=== PATIENT | male | born 1950 | race Caucasian/White ===

== ENCOUNTER 2020-02-20 11:19 | Observation (INO) | payer OTHER ==
[2020-02-20 12:08] LABS: Absolute Lymphocytes (CBC) 0.4 K/uL (0.7-4.9); Basophils % 0.6 % (0-1.3); Hematocrit 42.6 % (39.6-49.0); Lymphocytes % 3.2 % (15.3-44.8); MPV 8.5 fL (7.6-11.3); RBC Red Blood Cell Count 4.92 M/uL (4.33-5.43)
--- OUTSIDE RECORDS SUMMARY | 2020-02-20 12:11 | XMS REPORT ---
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
--- OUTSIDE RECORDS SUMMARY | 2020-02-20 12:11 | XMS REPORT ---
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 disorder without prior episode Problem Current moderate episode of major F32.1 Active depressive disorder without prior episode Problem Generalized anxiety disorder F41.1 Active Problem Acquired hypothyroidism E03.9 Acti ve Problem Essential hypertension I10 Activ e 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 Active Problem GERD without esophagitis K21.9 Act li Problem Mixed hyperlipidemia E78.2 Active Problem Type 2 diabetes mellitus with E11.65 Active hyperglycemia Assessment Primary osteoarthritis involving M89.49 Active multiple joints Assessment Mixed hyperlipidemia E78.2 Active Assessment Lower urinary tract symptoms (LUTS) R39.9 Active Assessment Generalized anxiety disorder F41.1 Active Assessment Acquired hypothyroidism E03.9 Acti ve Assessment Essential hypertension I10 Activ e Assessment GERD without esophagitis K21.9 Act li Assessment group home (current) use of insulin Z79.4 Active Assessment Irritability and anger R45.4 Activ e Assessment Type 2 diabetes mellitus with E11.65 Active hyperglycemia Medications Medication Code Code Instructions Start End Status Dosage System Date Date Fluoxetine HCl [facility] 16733106671 20 MG Orally Active 1 capsule Once a day Trulicity [facility] 13366597211 1.5 MG/0.5ML October Active as di rected Subcutaneous 2019, Once a week 2019 Nature-Throid [facility] 61370228918 65 MG Orally Active 1 tablet on Once a day an empty stomach Meloxicam ND 16222630435 15 MG Orally Active 1 tab let Once a day Invokana [facility] 23388921095 300 mg orally Active 1 tab let once a day Metformin HCl ND 40684949842 1000 MG Orally Active 1 tablet Once a day with a meal Co Q-10 [facility] 80336800794 400 MG Orally Active 1 caps ule PRN with a meal NovoLIN 70/30 [facility] 14883309451 (70-30) 100 Active in ject 40 FlexPen UNIT/ML units Subcutaneous Once a day Trulicity [facility] 54797528122 0.75mg/0.5ml SQ Active on e once a week injection Rosuvastatin [facility] 40879151944 20 MG Orally Active 1 tablet Calcium Once a day Results Name Result Date Reference Range Unit Abnormali ty Flag Prostate-Specific Ag, Serum ----Prostate 0.7 15817301 0.0-4.0 ng/mL Specific Ag, Serum Thyroid Panel With TSH ----Free Thyroxine 1.5 86546130 1.2-4.9 Index ----TSH 1.790 02625130 0.450-4.500 uIU/mL ----T3 Uptake 23 94006883 24-39 % L ----Thyroxine (T4) 6.5 10005703 4.5-12.0 ug/dL Lipid Panel With LDL/HDL Ratio ----LDL/HDL Ratio 1.7 56494989 0.0-3.6 ratio ----LDL Cholesterol 104 40789033 0-99 mg/dL H Calc ----Cholesterol, 183 47141061 100-199 mg/dL Total ----Triglycerides 92 89710333 0-149 mg/dL ----HDL Cholesterol 61 47188615 >39 mg/dL ----VLDL 18 81612376 5-40 mg/dL Cholesterol Thomas UA/M w/rflx Culture, Comp ----Glucose 3+ 20191121 Negative A ----Protein Negative [id number] Negative/Trace ----Occult Blood Negative [id number] Negative ----Ketones Trace 60240665 Negative A ----Urobilinogen,Se 0.2 30852415 0.2-1.0 mg/dL mi-Qn ----Nitrite, Urine Negative [id number] Negative ----Bilirubin Negative 52792691 Negative ----RBC 0-2 32323199 0 - 2 /hpf ----Appearance Clear [id number] Clear ----Epithelial None seen 12583478 0 - 10 /hpf Cells (non renal) ----WBC Esterase Negative 30803008 Negative ----Microscopic See below: [id number] Examination ----pH 5.0 20191121 5.0-7.5 ----WBC 0-5 67171938 0 - 5 /hpf ----Urine-Color Yellow 20191121 Yellow ----Specific >=1.030 20191121 1.005-1.030 A Aladdin ----Bacteria None seen 20191121 None seen/Few CBC With Differential/Platel et ----Monocytes(Absol 0.5 20191121 0.1-0.9 x10E3/uL alan) ----Hemoglobin 16.8 20191121 13.0-17.7 g/dL ----Lymphs 1.6 73939964 0.7-3.1 x10E3/uL (Absolute) ----Hematocrit 51.9 20191121 37.5-51.0 % H ----Neutrophils 4.5 20191121 1.4-7.0 x10E3/uL (Absolute) ----WBC 6.9 20191121 3.4-10.8 x10E3/uL ----Basos 1 51263976 Not Estab. % ----RBC 5.63 97177284 4.14-5.80 x10E6/uL ----Baso (Absolute) 0.1 35397715 0.0-0.2 x10E3/uL ----Eos (Absolute) 0.2 04794297 0.0-0.4 x10E3/uL ----Platelets 222 64447994 150-450 x10E3/uL ----Eos 3 34148570 Not Estab. % ----MCHC 32.4 39562424 31.5-35.7 g/dL ----RDW 12.8 38142962 11.6-15.4 % ----Monocytes 7 72688781 Not Estab. % ----MCV 92 67655144 79-97 fL ----Lymphs 24 01723327 Not Estab. % ----MCH 29.8 15874850 26.6-33.0 pg ----Neutrophils 64 82557112 Not Estab. % ----Immature 1 84103436 Not Estab. % Granulocytes ----Immature Grans 0.1 39801390 0.0-0.1 x10E3/uL (Abs) Comp. Metabolic Panel (14) (CMP) ----BUN/Creatinine 18 20191121 10-24 Ratio ----eGFR If Africn 110 [id number] >59 mL/min/1.73 Am ----eGFR If 95 [id number] >59 mL/min/1.73 NonAfricn Am ----Creatinine 0.74 20191121 0.76-1.27 mg/dL L ----Chloride 95 20191121 96-106 mmol/L L ----Potassium 4.6 44431309 3.5-5.2 mmol/L ----Sodium 138 20191121 134-144 mmol/L ----Protein, Total 7.4 20191121 6.0-8.5 g/dL ----Albumin 4.8 20191121 3.8-4.8 g/dL ----Globulin, Total 2.6 14072736 1.5-4.5 g/dL ----A/G Ratio 1.8 20191121 1.2-2.2 ----BUN 13 20191121 8-27 mg/dL ----Glucose 381 29354334 65-99 mg/dL H ----Carbon Dioxide, 26 20191121 20-29 mmol/L Total ----Calcium 10.0 17747894 8.6-10.2 mg/dL ----AST (SGOT) 14 20191121 0-40 IU/L ----ALT (SGPT) 16 20191121 0-44 IU/L ----Bilirubin, 0.9 99731384 0.0-1.2 mg/dL Total ----Alkaline 71 73797904 39-117 IU/L Phosphatase Uric Acid, Serum ----Uric Acid 5.6 65414416 3.7-8.6 mg/dL Microalbumin/Creat Ratio, Random Ur ----Alb/Creat Ratio 9 [id number] 0-29 mg/g creat ----Albumin, Urine 4.9 98836449 Not Estab. ug/mL ----Creatinine, 54.5 23473048 Not Estab. mg/dL Urine Hemoglobin A1c ----Hemoglobin A1c >15.5 94419088 4.8-5.6 % H Summary Purpose eClinicalWorks Submission
--- OUTSIDE RECORDS SUMMARY | 2020-02-20 12:12 | XMS REPORT | Continuity of Care Document ---
:1950 Author Organization [facility] t Address [address] [place] [address] Care Team Providers Name Role Phone Unavailable Unavailable Unavailable Problems Condition Condition Condition Status Onset Resolution Last Treating Co mments Source Name Details Category Date Date Treatment Clinician Date Current Current Problem Active [facility] moderate moderate [facility] - episode of episode of Me moria major major l depressive depressive Ou tpati disorder disorder ent without without Clinics prior prior episode episode Generalize Generalize Problem Active [facility] d anxiety d anxiety [facility] - disorder disorder [facility] a [facility] ent [facility]ics Acquired Acquired Problem Active [facility] hypothyroi hypothyroi Charlene kes - dism dism [facility]oria l [facility] Essential Essential Problem Active [facility] hypertensi hypertensi Charlene kes - on on [facility] ent Clinics 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 Active [facility] (current) (current) Luke s - use of use of Memoria insulin insulin l [facility] Clinics GERD GERD Problem Active [facility] without without [facility] - esophagiti [facility]ophagiti [facility] Mixed Mixed Problem Active [facility] hyperlipid hyperlipid Charlene kes - emia emia [facility] Type 2 Type [address] [facility] diabetes diabetes [facility] - mellitus mellitus Memori a with with l hyperglyce hyperglyce Ou tpati sera sera ent Clinics Allergies, Adverse Reactions, Alerts Allergy Allergy Status Severity Reaction(s) Onset Inactive Treating Comm ents Source Name Type Date Date Clinician Sulfacet Adverse Active Rash [facility] amide Reaction [facility] - Sodium [facility] Medications Ordered Filled Start Stop Current Ordering Indication Dosage Frequency Signature Comments Components Source Medication Medication Date Date Medication? Clinician (SIG) Name Name Gabapentin Gabapentin Yes Marshall [address] [facility] 7-20 Fournier [facility] - 00:00: [facility]oria 00 l [facility] ent Clinics Procedures This patient has no known procedures. Encounters Start End Encounter Admission Attending Care Care Encounter Source Date/Time Date/Time Type Type Clinicians Facility Department ID 2020-02-18 2020-02-18 [facility] [id number] [facility] 10:25[facility]00 10:25:00 [facility] 2019-12-26 2019-12-26 [facility] [id number] [facility] 11:00:00 11:00:00 [facility] 2019-12-26 2019-12-26 [facility] [id number] 11:00:00 11:00:00 [facility] 2019-11-23 2019-11-23 [facility] [id number] [facility] 13:13:00 13:13:00 [facility] 2019-11-21 2019-11-21 [facility] [id number] 11:00:00 11:00:00 [facility] Results This patient has no known results.
--- OUTSIDE RECORDS SUMMARY | 2020-02-20 12:12 | XMS REPORT ---
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 disorder without prior episode Problem Generalized anxiety disorder F41.1 Active Problem Acquired hypothyroidism E03.9 Acti ve Problem Essential hypertension I10 Activ e Problem retirement (current) use of insulin Z79.4 Active Problem GERD without esophagitis K21.9 Act li Problem Mixed hyperlipidemia E78.2 Active Problem Type 2 diabetes mellitus with E11.65 Active hyperglycemia Medications Medication Code Code Instructions Start End Status Dosage System Date Date Invokana [facility] 95542242740 300 mg orally Active 1 tab let once a day Metformin HCl [facility] 96707139681 1000 MG Orally Active 1 tablet Once a day with a meal Nature-Throid [facility] 71356911115 65 MG Orally Active 1 tablet on Once a day an empty stomach [place]oxic[place] ND 06572884223 15 MG Orally Active 1 tab let Once a day Rosuvastatin [facility] 14706312844 20 MG Orally Active 1 tablet Calcium Once a day Fluoxetine HCl [facility] 89768673971 20 MG Orally Active 1 capsule Once a day Co Q-10 [facility] 52009953691 400 MG Orally Active 1 caps ule PRN with a meal NovoLIN 70/30 [facility] 11531567714 (70-30) 100 Active in ject 40 FlexPen UNIT/ML units Subcutaneous Once a day Trulicity [facility] 70322518391 1.5 MG/0.5ML October Active as di rected Subcutaneous 2019, [facility] week [facility] 0.75[facility]/0.5ml SQ Active on e once a week injection Results No Known Results Summary Purpose eClinicalWorks Submission
--- OUTSIDE RECORDS SUMMARY | 2020-02-20 12:12 | XMS REPORT ---
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 Active Assessment Primary osteoarthritis involving M89.49 Active multiple joints Assessment Lower urinary tract symptoms (LUTS) R39.9 Active Assessment Generalized anxiety disorder F41.1 Active Assessment Irritability and anger R45.4 Activ e Assessment Acquired hypothyroidism E03.9 Acti ve Assessment Mixed hyperlipidemia E78.2 Active Assessment Essential hypertension I10 Activ e Assessment GERD without esophagitis K21.9 Act li Assessment Type 2 diabetes mellitus with E11.65 Active hyperglycemia Medications Medication Code Code Instructions Start End Status Dosage System Date Date Meloxicam [facility] 73114778108 15 MG Orally Active 1 tab let Once a day NovoLIN 70/30 ND 60032609195 (70-30) 100 Inactive i nject 40 FlexPen UNIT/ML units Subcutaneous Once a day [place] ND 55932662919 200 UNIT/ML December 25, Active Inject 6 0 FlexTouch Subcutaneous QD 2020 units Trulicity [facility] 74109867931 1.5 MG/0.5ML Active as di rected Subcutaneous Once a week Nature-Throid [facility] 18238341671 65 MG Orally Active 1 tablet on Once a day an empty stomach Co Q-10 [facility] 91549177781 400 MG Orally Active 1 caps ule PRN with a meal Metformin HCl ND 30342768147 1000 MG Orally Active 1 tablet Once a day with a meal Rosuvastatin [facility] 50692087316 20 MG Orally Active 1 tablet Calcium Once a day Fluoxetine HCl [facility] 28387920737 20 MG Orally Active 1 capsule Once a day Invokana [facility] 85764684861 300 mg orally Active 1 tab let once a day Trulicity [facility] 10277272070 0.75mg/0.5ml SQ Active on e once a week injection Results No Known Results Summary Purpose eClinicalWorks Submission
--- OUTSIDE RECORDS SUMMARY | 2020-02-20 12:12 | XMS REPORT ---
:1950 Author Organization eClinicalWorks Care Team Providers Name Role Phone FournierMarshall Provider Role Unavailable Allergies No Known Allergies [...] with E11.65 Active hyperglycemia Medications Medication Code System Code Instructions Start End Date Status Dos age Date Gabapentin [facility] 24403449115 100 MG Orally February 17, Active 1 capsule twice a day 2019 Results No Known Results Summary Purpose eClinicalWorks Submission
[2020-02-20 12:15] LABS: Protime INR 1.27
[2020-02-20] MEDS ORDERED: NA CHLORIDE 0.9% 500 ML ONE (12:20)
[2020-02-20] MEDS ORDERED: ONDANSETRON 4 MG/2 ML VIAL ONE (12:20)
--- NOTE | 2020-02-20 12:25 | RAD REPORT ---
EXAM DESCRIPTION: RAD - Chest Single View - 02/20/2020 12:00 pm CLINICAL HISTORY: DYSPNEA Chest pain. COMPARISON: No comparisons FINDINGS: Portable technique limits examination quality. Mildly prominent interstitial lung markings are seen, nonspecific. A mild interstitial pneumonitis is possible. The heart is normal in size. No displaced fractures.
[2020-02-20 12:44] LABS: ALT/SGPT 20 U/L (12-78); AST/SGOT 24 U/L (15-37); Albumin 2.8 g/dL (3.4-5.0); Alkaline Phosphatase 51 U/L (45-117); BUN Blood Urea Nitrogen 19 mg/dL (7-18); Bicarbonate 22 mmol/L (21-32); Bilirubin Direct 0.3 mg/dL (0-0.2); Bilirubin Total 1.1 mg/dL (0.2-1.0); Ferritin 3519.5 ng/mL (26-388); Glucose Level 283 mg/dL (74-106); Lipase 59 U/L (73-393); Potassium 3.8 mmol/L (3.5-5.1); Protein, Total 7.6 g/dL (6.4-8.2); Sodium Level 130 mmol/L (136-145); Troponin (Emerg Dept Use Only) < 0.02 ng/mL (0.0-0.045)
[2020-02-20 12:50] LABS: Blood Morphology Comment NOT SEEN (NOT SEEN); Platelet Estimate ADEQ; Urine White Blood Cell Casts OK
[2020-02-20] MEDS ORDERED: ACETAMINOPHEN 325 MG TABLET ONE (12:55)
--- NOTE | 2020-02-20 13:42 | RAD REPORT ---
EXAM DESCRIPTION: CT - Chest Abdomen Pelvis W Cont - 02/20/2020 1:13 pm CLINICAL HISTORY: Cough, abdominal pain COMPARISON: None TECHNIQUE: Computed axial tomography of the chest, abdomen and pelvis was obtained. 100 cc Isovue-30 0 was administered intravenously. Oral contrast was not requested. This limits evaluation of bowel. All CT scans are performed using dose optimization technique as appropriate and may include automated exposure control or mA/KV adjustment according to patient size. FINDINGS: Bilateral ground-glass opacities within the lungs. No pleural effusion. No pericardial effusion. Calcified mediastinal lymph nodes. Mild fatty liver The spleen, pancreas, adrenals and kidneys appear unremarkable Atherosclerosis Normal appendix. No evidence of diverticulitis IMPRESSION: Moderate bilateral ground-glass opacities within the lungs probably Covid pneumonia
[2020-02-20] MEDS ORDERED: dexAMETHasone 10 MG/ML VIAL ONE (14:18)
--- NOTE | 2020-02-20 14:19 | ER ---
Nurse's Notes [facility] Name: Hasmukh Martin Age: 69 yrs Sex: Male : 1950 Arrival Date: 02/20/2020 Time: 11:18 Bed 8 Private MD: Diagnosis: Dehydration;Pneumonia, unspecified organism;Coronavirus infection, unspecified Presentation: 02/19 11:18 Chief complaint: EMS states: dx w/ COVID 2 weeks ago with symptoms. About 4 days ago sv started having abd pain, nausea, dizziness. 88% RA placed on O2 \T\ 4L per NC. HR 90-110s SBP 150s Temp 100.1. Pt reports not having any food or drink for about a week. Coronavirus screen: Prior COVID test collected on: 02/06/20 POSITIVE. Ebola Screen: No symptoms or risks identified at this time. Risk Assessment: Do you want to hurt yourself or someone else? Patient reports no desire to harm self or others. Onset of symptoms was February 16, 2020. 11:18 Method Of Arrival: EMS: [facility] sv 11:18 Acuity: MARTA 2 sv 11:30 Initial Sepsis Screen: Does the patient meet any 2 criteria? RR > 20 per min. Temp sv <36.0*C (96.8*F)) or > 38.3*C (100.9*F). Yes Does the patient have a suspected source of infection? Yes: Acute abdominal pain. Triage Assessment: 11:18 General: Appears in no apparent distress. uncomfortable, slender, well developed, sv Behavior is calm, cooperative, appropriate for age. Pain: Complains of pain in abdomen Pain currently is 7 out of 10 on a pain scale. Pain began 4 days ago Is continuous, Aggravated by eating, drinking, Noted to be resistant to movement, Also complains of nausea. Neuro: Level of Consciousness is awake, alert, obeys commands, Oriented to person, place, time, situation, Moves all extremities. Full function Speech is normal. Neuro: Reports dizziness. Respiratory: Airway is patent Respiratory effort is even, unlabored, Respiratory pattern is regular, symmetrical. GI: Reports nausea. GI: Reports lower abdominal pain, upper abdominal pain. : Reports dribbling of urine. Derm: Skin is intact, Skin is normal. Historical: - Allergies: 12:05 Sulfa (Sulfonamide Antibiotics); sv - PMHx: 12:05 Diabetes - NIDDM; sv - PSHx: 12:05 bilateral bicep; sv - Immunization history:: Adult Immunizations up to date. - Social history:: Smoking status: Patient denies any tobacco usage or history of. - Family history:: not pertinent. - Hospitalizations: : No recent hospitalization is reported. Screenin:20 Abuse screen: Denies threats or abuse. Denies injuries from another. Nutritional sv screening: No deficits noted. Tuberculosis screening: No symptoms or risk factors identified. Fall Risk None identified. Assessment: 12:32 Reassessment: Patient appears in no apparent distress at this time. No changes from sv previously documented assessment. Patient and/or family updated on plan of care and expected duration. Pain level reassessed. Patient is alert, oriented x 3, equal unlabored respirations, skin warm/dry/pink. 12:57 Reassessment: Patient appears in no apparent distress at this time. No changes from sv previously documented assessment. Patient and/or family updated on plan of care and expected duration. Pain level reassessed. Patient is alert, oriented x 3, equal unlabored respirations, skin warm/dry/pink. 14:25 Reassessment: Patient appears in no apparent distress at this time. Patient and/or sv family updated on plan of care and expected duration. Pain level reassessed. Patient is alert, oriented x 3, equal unlabored respirations, skin warm/dry/pink. 14:29 Reassessment: Yvan INSTRUCTIONAL SUPPORT ASSISTANT at bedside to assess pt and then place admission orders. sv 15:32 Reassessment: Patient appears in no apparent distress at this time. Patient and/or sv family updated on plan of care and expected duration. Pain level reassessed. Patient is alert, oriented x 3, equal unlabored respirations, skin warm/dry/pink. Vital Signs: 11:30 BP 130 / 82; Pulse 86; Resp 28; Temp 101(O); Pulse Ox 97% on 4 lpm NC; Pain 7/10; sv 12:33 BP 119 / 79; Pulse 80; Resp 18; Pulse Ox 98% on 4 lpm NC; sv 13:00 BP 124 / 77; Pulse 82; Resp 26; Pulse Ox 95% on 4 lpm NC; sv 14:28 BP 122 / 80; Pulse 78; Resp 18; Temp 97.8(O); Pulse Ox 96% on 4 lpm NC; sv 14:56 BP 135 / 90; Pulse 75; Resp 21; Pulse Ox 98% on 4 lpm NC; sv 15:18 BP 132 / 85; Pulse 77; Resp 19; Pulse Ox 97% on 4 lpm NC; sv ED Course: 11:18 Patient arrived in ED. sv 11:20 Patient has correct armband on for positive identification. Placed in gown. Bed in low sv position. Call light in reach. monitoring and evaluation advisor on. Pulse ox on. NIBP on. Door closed. Head of bed elevated. 11:26 Vahid Cotter MD is Attending Physician. rn 11:37 First set of blood cultures drawn by me. Inserted saline lock: 20 gauge in right sv forearm, using aseptic technique. Blood collected. Flushed right forearm with 5 ml normal saline. 11:49 Second set of blood cultures drawn by me. sv 12:00 CXR XRAY In Process Unspecified. EDMS 12:00 Emmanuelle Broussard, ROZ is Primary Nurse. sv 12:05 Triage completed. sv 12:06 Arm band placed on. sv 13:15 CT Chest, Abdomen, Pelvis - W/Contrast In Process Unspecified. EDMS 13:35 Awaiting lab results, Awaiting radiology results. sv 13:51 Awaiting disposition, Awaiting re-evaluation by ER provider. sv 14:17 Blanco Pierre MD is Hospitalizing Provider. rn 14:30 Awaiting bed assignment. sv 15:31 No provider procedures requiring assistance completed. Patient admitted, IV remains in sv place. intact. 16:20 Urine Dipstick--Ancillary (enter results) Sent. sv Administered Medications: 12:32 Drug: Zofran (Ondansetron) 4 mg Route: IVP; Site: right forearm; sv 13:01 Follow up: Response: No adverse reaction sv 12:32 Drug: NS 0.9% 500 ml Route: IV; Rate: bolus; Site: right forearm; sv 13:02 Follow up: Response: No adverse reaction; IV Status: Completed infusion; IV Intake: sv 500ml 12:57 Drug: Tylenol 650 mg Route: PO; sv 13:02 Follow up: Response: No adverse reaction sv 14:25 Drug: Decadron - Dexamethasone 10 mg Route: IVP; Site: right forearm; sv 15:00 Follow up: Response: No adverse reaction sv Intake: 13:02 IV: 500ml; Total: 500ml. sv Outcome: 14:18 Decision to Hospitalize by Provider. rn 15:31 Admitted to Tele accompanied by tech, via wheelchair, room 415, with oxygen, with sv chart, Report called to Yesika COURTNEY 15:31 Condition: stable 15:31 Instructed on the need for admit. 16:19 Patient left the ED. sv Signatures: Dispatcher [employer] Emmanuelle Cloud, RN RN sv Vahid Cotter MD MD rn
--- NOTE | 2020-02-20 14:19 | EDPHYS ---
Physician Documentation [facility] Name: Hasmukh Martin Age: 69 yrs Sex: Male : 1950 Arrival Date: 02/20/2020 Time: 11:18 Bed 8 Private MD: ED Physician Vahid Cotter HPI: 02/19 13:39 This 69 yrs old Male presents to ER via EMS with complaints of Abdominal rn Pain, sob, Nausea, Dizziness. 13:40 The patient has shortness of breath at rest, with light activity. rn 13:41 Onset: The symptoms/episode began/occurred 4 day(s) ago. Duration: The symptoms are rn continuous. The patient's shortness of breath is aggravated by nothing, is alleviated by nothing. Severity of symptoms: At their worst the symptoms were moderate in the emergency department the symptoms are unchanged. The patient has not experienced similar symptoms in the past. Reports recently diagnosed with COVID-19, 4 days of cough/sob/abd pain/nausea, fatigue. . Historical: - Allergies: 12:05 Sulfa (Sulfonamide Antibiotics); sv - PMHx: 12:05 Diabetes - NIDDM; sv - PSHx: 12:05 bilateral bicep; sv - Immunization history:: Adult Immunizations up to date. - Social history:: Smoking status: Patient denies any tobacco usage or history of. - Family history:: not pertinent. - Hospitalizations: : No recent hospitalization is reported. 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 Exam: 13:41 Constitutional: This is a well developed, well nourished patient who is awake, alert, rn and in no acute distress. Head/Face: Normocephalic, atraumatic. ENT: dry MM Cardiovascular: Regular rate and rhythm. No pulse deficits. Respiratory: + tachypnea, diminished at bases, no retractions Abdomen/GI: soft, mild tenderness epigastrium, no masses or rebound MS/ Extremity: Pulses equal, no cyanosis. Neurovascular intact. Full, normal range of motion. Equal circumference. Neuro: Awake and alert, GCS 15 14:44 ECG was reviewed by the Attending Physician. rn Vital Signs: 11:30 BP 130 / 82; Pulse 86; Resp 28; Temp 101(O); Pulse Ox 97% on 4 lpm NC; Pain 7/10; sv 12:33 BP 119 / 79; Pulse 80; Resp 18; Pulse Ox 98% on 4 lpm NC; sv 13:00 BP 124 / 77; Pulse 82; Resp 26; Pulse Ox 95% on 4 lpm NC; sv 14:28 BP 122 / 80; Pulse 78; Resp 18; Temp 97.8(O); Pulse Ox 96% on 4 lpm NC; sv 14:56 BP 135 / 90; Pulse 75; Resp 21; Pulse Ox 98% on 4 lpm NC; sv 15:18 BP 132 / 85; Pulse 77; Resp 19; Pulse Ox 97% on 4 lpm NC; sv MDM: 11:26 Patient medically screened. rn 14:09 Differential diagnosis: pneumonia, COVID, dehydration, sepsis. Data reviewed: vital rn signs, nurses notes, lab test result(s), EKG, radiologic studies, CT scan, plain films, and as a result, I will admit patient. Counseling: I had a detailed discussion with the patient and/or guardian regarding: the historical points, exam findings, and any diagnostic results supporting the discharge/admit diagnosis, lab results, radiology results, the need for further work-up and treatment in the hospital. Response to treatment: the patient's symptoms have mildly improved after treatment, and as a result, I will admit patient. Admission orders: after a detailed discussion of the patient's condition and case, the admit orders are written by me. 02/19 11:28 Order name: Blood Culture Adult (2) rn 02/19 11:28 Order name: BMP; Complete Time: 12:48 rn 02/19 11:28 Order name: C-Reactive Protein; Complete Time: 12:48 rn 02/19 11:28 Order name: CBC with Diff; Complete Time: 13:56 rn 02/19 11:28 Order name: D-Dimer; Complete Time: 12:28 rn 02/19 11:28 Order name: Ferritin; Complete Time: 12:48 rn 02/19 11:28 Order name: Flu rn 02/19 11:28 Order name: Lactate; Complete Time: 12:28 rn 02/19 11:28 Order name: LFT's; Complete Time: 12:48 rn 02/19 11:28 Order name: Lipase; Complete Time: 12:48 rn 02/19 11:28 Order name: Procalcitonin; Complete Time: 13:56 rn 02/19 11:28 Order name: PT-INR; Complete Time: 12:28 rn 02/19 11:28 Order name: Ptt, Activated; Complete Time: 12:28 rn 02/19 11:28 Order name: Troponin (emerg Dept Use Only); Complete Time: 12:48 rn 02/19 11:28 Order name: Urine Microscopic Only rn 02/19 11:28 Order name: CXR XRAY; Complete Time: 12:28 rn 02/19 11:28 Order name: EKG; Complete Time: 11:30 rn 02/19 11:28 Order name: Cardiac monitoring; Complete Time: 12:32 rn 02/19 11:28 Order name: Droplet/Contact Precautions; Complete Time: 12:32 rn 02/19 11:28 Order name: EKG - Nurse/Tech; Complete Time: 12:33 rn 02/19 11:28 Order name: IV Start; Complete Time: 12:33 rn 02/19 11:28 Order name: Labs collected and sent; Complete Time: 12:33 rn 02/19 11:28 Order name: O2 Per Protocol; Complete Time: 12:33 rn 02/19 12:49 Order name: CT Chest, Abdomen, Pelvis - W/Contrast; Complete Time: 13:56 rn 02/19 12:50 Order name: CBC Smear Scan; Complete Time: 13:56 EDMS 02/19 15:38 Order name: Urine Dipstick--Ancillary (enter results) bd 02/19 11:28 Order name: O2 Sat Monitoring; Complete Time: 12:33 rn 02/19 11:28 Order name: Urine Dipstick-Ancillary (obtain specimen); Complete Time: 14:25 rn EC:44 Rate is 87 beats/min. Rhythm is regular. QRS Bow is Normal. FL interval is normal. QRS rn interval is normal. QT interval is normal. No Q waves. T waves are Normal. No ST changes noted. Clinical impression: NSR w/ Non-specific ST/T Changes. Interpreted by me. Reviewed by me. Administered Medications: 12:32 Drug: Zofran (Ondansetron) 4 mg Route: IVP; Site: right forearm; sv 13:01 Follow up: Response: No adverse reaction sv 12:32 Drug: NS 0.9% 500 ml Route: IV; Rate: bolus; Site: right forearm; sv 13:02 Follow up: Response: No adverse reaction; IV Status: Completed infusion; IV Intake: sv 500ml 12:57 Drug: Tylenol 650 mg Route: PO; sv 13:02 Follow up: Response: No adverse reaction sv 14:25 Drug: Decadron - Dexamethasone 10 mg Route: IVP; Site: right forearm; sv 15:00 Follow up: Response: No adverse reaction sv Disposition: 02/20/20 14:18 Hospitalization ordered by Blanco Pierre for Inpatient Admission. Preliminary diagnosis are Dehydration, Pneumonia, unspecified organism, Coronavirus infection, unspecified. - Bed requested for Telemetry/MedSurg (Inpatient). - Status is Inpatient Admission. sv - Condition is Stable. - Problem is new. - Symptoms are unchanged. 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 Preliminary kl diagnosis is Dehydration; Pneumonia, unspecified organism; Coronavirus infection, unspecified. Bed requested for Telemetry/MedSurg (Inpatient). Status is Inpatient Admission. Condition is Stable. Problem is new. Symptoms are unchanged. rn 16:19 15:09 02/20/2020 14:18 Hospitalization Ordered by Blanco Pierre MD for Inpatient sv Admission. Preliminary diagnosis is Dehydration; Pneumonia, unspecified organism; Coronavirus infection, unspecified. Bed requested for Telemetry/MedSurg (Inpatient). Status is Inpatient Admission. Condition is Stable. Problem is new. Symptoms are unchanged.
--- NOTE | 2020-02-20 15:21 | P.HP ---
Certification for Inpatient Patient admitted to: Observation With expected LOS: <2 Midnights Patient will require the following post-hospital care: None Practitioner: I am a practitioner with admitting privileges, knowledge of patient current condition, hospital course, and medical plan of care. Services: Services provided to patient in accordance with Admission requirements found in Title 42 Section 412.3 of the Code of Federal Regulations <Yvan Pedroza - Last Filed: 02/20/20 15:12> Patient History Date of Service: 02/20/20 Reason for admission: COVID pneumonia, hypoxia History of Present Illness: 69-year-old male with medical history of hypertension, diabetes mellitus type 2, hyperlipidemia presents emergency department for COVID symptoms. Patient reports that he tested positive for covid approximately 2 weeks ago but over the course of the last 1 week has been getting worse. Patient reports anorexia, dehydration, shortness of breath. Patient room air sats 88% in the emergency department, patient currently on 4 L per nasal cannula satting around 92%. Patient's workup in the emergency department was relatively benign. ED provider wishes to admit patient for further evaluation and management. When I saw the patient in the emergency department he appeared calm, cooperative, alert, oriented x4, no respiratory distress noted. Patient does report that he has had no appetite and has not been eating well for the past 1 week. Patient reports that he has had a 12 lb weight loss in the last 1 week. The patient be admitted for further evaluation and management. The patient is amenable to receiving convalescent plasma. - Past Medical/Surgical History -: Diabetes mellitus type 2 -: Hypertension -: Hyperlipidemia -: Bicep tendon repair Psychosocial/ Personal History: Patient lives at home with his and to disable daughters - Family History Family History: Reviewed- Non-Contributory - Social History Smoking Status: Never smoker Alcohol use: No CD- Drugs: No Caffeine use: No Place of Residence: Home <Yvan Pedroza - Last Filed: 02/20/20 15:12> Date of Service: 02/20/20 <Mike Pierre - Last Filed: 02/20/20 16:39> Review of Systems 10-point ROS is otherwise unremarkable General: Fever, Chills, Weakness, Malaise Respiratory: Cough, Shortness of Breath Gastrointestinal: Nausea <Yvan Pedroza - Last Filed: 02/20/20 15:12> Physical Examination - Physical Exam General: Alert, In no apparent distress HEENT: Atraumatic, PERRLA, Other (Mucous membranes dry), EOMI, Sclerae nonicteric Neck: Supple, JVD not distended Respiratory: Clear to auscultation bilaterally, Normal air movement Cardiovascular: Regular rate/rhythm, Normal S1 S2 Gastrointestinal: Normal bowel sounds, No tenderness Musculoskeletal: No tenderness Integumentary: No rashes Neurological: Normal speech, Normal strength at 5/5 x4 extr, Normal tone, Normal affect Lymphatics: No axilla or inguinal lymphadenopathy - Studies Laboratory Data (last 24 hrs) 02/20/20 11:37: PT 14.9 H, INR 1.27, APTT 31.9 02/20/20 11:37: WBC 11.4 H, Hgb 14.9, Hct 42.6, Plt Count 227 02/20/20 11:37: Sodium 130 L, Potassium 3.8, BUN 19 H, Creatinine 0.90, Glucose 283 H, Total Bilirubin 1.1 H, AST 24, ALT 20, Alkaline Phosphatase 51, Lipase 59 L Microbiology Data (last 24 hrs): 02/20/20 12:17 Nasopharnyx Influenza Type A Antigen Screen - Final 02/20/20 12:17 Nasopharnyx Influenza Type B Antigen Screen - Final <Yvan Pedrzoa - Last Filed: 02/20/20 15:12> - Studies Laboratory Data (last 24 hrs) 02/20/20 11:37: PT 14.9 H, INR 1.27, APTT 31.9 02/20/20 11:37: WBC 11.4 H, Hgb 14.9, Hct 42.6, Plt Count 227 02/20/20 11:37: Sodium 130 L, Potassium 3.8, BUN 19 H, Creatinine 0.90, Glucose 283 H, Total Bilirubin 1.1 H, AST 24, ALT 20, Alkaline Phosphatase 51, Lipase 59 L Microbiology Data (last 24 hrs): 02/20/20 12:17 Nasopharnyx Influenza Type A Antigen Screen - Final 02/20/20 12:17 Nasopharnyx Influenza Type B Antigen Screen - Final <Mike Pierre - Last Filed: 02/20/20 16:39> Assessment and Plan - Plan Assessment Hypoxia secondary to COVID pneumonia Dehydration secondary to anorexia and poor p.o. intake Diabetes mellitus type 2 Hypertension Hyperlipidemia Plan Hypoxia secondary to COVID pneumonia: Patient will be admitted for further evaluation management, oxygen titrated to saturations of 90%. Will continue with IV Decadron, oral thiamine, folic acid, zinc. DVT prophylaxis is Lovenox 40 mg subcutaneous once daily. Respiratory therapy to assist weaning patient off of oxygen. Will attempt to qualify for home oxygen. Case was discussed with pulmonology, Appreciate further input from pulmonology. Patient is amendable to convalescent plasma, will obtain type and screen and start this process with hospitalist physician. Dehydration secondary to anorexia and poor p.o. intake: Patient's mucous membranes very dry, reports 12 lb weight loss the last 1 week. Will start with IV fluids overnight and determine patient's hydration needs tomorrow. Diabetes mellitus type 2: A.c. HS Accu-Cheks with sliding scale insulin therapy. Will obtain and continue patient's home medications. Hypertension: Obtain and continue patient's home medications. Hyperlipidemia: Obtain and continue patient's home medications. Discharge Plan: Home Plan to discharge in: 48 Hours - Advance Directives Does patient have a Living Will: No Does patient have a Durable POA for Healthcare: No - Code Status/Comfort Care Code Status Assessed: Yes (Patient is full code) Critical Care: No Time Spent Managing Pts Care (In Minutes): 55 <Yvan Pedroza - Last Filed: 02/20/20 15:12> Physician Review Additional Text: Patient was seen and examined and findings were discussed Agree with the assessment and plan as documented by the CARLOS <Mike Pierre - Last Filed: 02/20/20 16:39>
[2020-02-20 15:24] LABS: Urine Bacteria <20 /HPF (NONE SEEN); Urine Culture Reflex Order NOT NEEDED; Urine RBC <5 /HPF (NONE SEEN)
[2020-02-20] MEDS ORDERED: ACETAMINOPHEN 500 MG TAB PO PRN (16:28)
[2020-02-20] MEDS ORDERED: ONDANSETRON 4 MG/2 ML VIAL IV PRN (16:28)
[2020-02-20] MEDS ORDERED: HYDRALAZINE HCL 20 MG/ML VIAL IV PRN (16:28)
[2020-02-20] MEDS ORDERED: NA CHLORIDE 0.9% 1,000 ML IV SCH (16:28)
[2020-02-20 17:04] VITALS: BMI 25.4
[2020-02-20] MEDS: ENOXAPARIN 40 MG/0.4 ML SQ SCH (17:12)
[2020-02-20] MEDS: dexAMETHasone 4 MG/ML VIAL IV SCH (17:12)
[2020-02-20] MEDS: INSULIN -REGULAR HUMAN 50 UNIT/0.5 ML ML SQ SCH ×2 (17:12→21:34)
[2020-02-20] MEDS ORDERED: PNEUMOCOCCAL VACCINE 0.5 ML IMVAC ONE (18:00)
[2020-02-20] MEDS: NA CHLORIDE 0.9% 1,000 ML IV SCH ×2 (21:00→21:34)
[2020-02-20] MEDS: BUDESONIDE 0.5 MG/2 ML NEB NEB SCH (21:32)
[2020-02-20] MEDS: GUAIFENESIN/CODEINE 5ML UCUP PO PRN (23:00)
[2020-02-21 03:56] LABS: Absolute Lymphocytes (CBC) 0.4 K/uL (0.7-4.9); Basophils % 0.3 % (0-1.3); MPV 8.7 fL (7.6-11.3); RBC Red Blood Cell Count 4.51 M/uL (4.33-5.43)
[2020-02-21 04:15] LABS: BUN Blood Urea Nitrogen 18 mg/dL (7-18); Bicarbonate 24 mmol/L (21-32); Glucose Level 274 mg/dL (74-106); Magnesium 2.4 mg/dL (1.8-2.4); Potassium 4.5 mmol/L (3.5-5.1); Sodium Level 133 mmol/L (136-145)
--- NOTE | 2020-02-21 07:25 | EKG ---
Test Date: 2020-02-20 Test Time: 11:45:45 General Foundry Worker: SRIRAM MEASUREMENT RESULTS: Intervals: Rate: 87 [place]: 154 QRSD: 112 QT: 370 QTc: 445 [place]: P: 57 [place]: 154 QRS: -5 T: 38 INTERPRETIVE STATEMENTS: Normal sinus rhythm Low voltage QRS Incomplete right bundle branch block Borderline ECG No previous ECG available for comparison Electronically Signed On 02-21-20 07:24:58 CDT by Dean Clay
[2020-02-21] MEDS: ENOXAPARIN 40 MG/0.4 ML SQ SCH (08:56)
[2020-02-21] MEDS: INSULIN -REGULAR HUMAN 50 UNIT/0.5 ML ML SQ SCH ×4 (08:56→22:10)
[2020-02-21] MEDS: FOLIC ACID 1 MG TABLET PO SCH (08:57)
[2020-02-21] MEDS: THIAMINE HCL 100 MG TABLET PO SCH (08:57)
[2020-02-21] MEDS: ZINC SULFATE 220 MG CAP PO SCH (08:57)
[2020-02-21] MEDS: dexAMETHasone 4 MG/ML VIAL IV SCH ×3 (08:57→16:39)
--- NOTE | 2020-02-21 09:05 | P.CNS ---
Date of Consult: 02/21/20 Chief Complaint: COVID pneumonia, hypoxia History of Present Illness: Patient is 69 years of age multiple medical problems admitted with worsening dyspnea was tested positive for Crohn or virus currently doing much better he also had some GI symptoms is feeling fine oxygenation is stable Allergies No Known Allergies Allergy (Verified 02/20/20 18:05) Home Medications: Canagliflozin [Invokana] 300 mg PO DAILY 02/20/20 Diclofenac Sodium 37.5 mg PO BEDTIME 02/20/20 Diclofenac Sodium [Voltaren] 37.5 mg PO DAILY 02/20/20 Dulaglutide [Trulicity] 1.5 mg SQ SEECOM 02/20/20 Fluoxetine HCl [Prozac] 20 mg PO DAILY 02/20/20 Insulin NPH Hum/Reg Insulin Hm [Novolin 70-30 Flexpen] 30 unit SQ DAILY AT SUPPER 02/20/20 Insulin NPH Hum/Reg Insulin Hm [Novolin 70-30 Flexpen] 40 units SQ DAILY 02/20/20 Meloxicam 1 tab PO DAILY 02/20/20 Metformin HCl [Glucophage] 500 mg PO DAILY WITH BREAKFAST 02/20/20 Rosuvastatin Calcium 20 mg PO DAILY 02/20/20 Thyroid,Pork [Nature-Throid] 65 mg PO DAILY 02/20/20 Ubidecarenone [Co Q-10] 400 mg PO DAILY 02/20/20 - Past Medical/Surgical History Diabetic: Yes -: Diabetes mellitus type 2- IDDM -: Hypertension -: Hyperlipidemia -: Hypothyroid -: Bicep tendon repair -: rogelio ankle sx -: Rogelio Knee sx Psychosocial/ Personal History: Patient lives at home with his and to disable daughters - Social History Alcohol use: No CD- Drugs: No Caffeine use: No Place of Residence: Home Review of Systems General: Weakness Respiratory: Shortness of Breath Physical Examination Temp Pulse Resp BP Pulse Ox 97.1 F 891 H 20 145/79 H 90 L 02/21/20 08:00 02/21/20 08:00 02/21/20 08:00 02/21/20 08:00 02/21/20 08:00 General: Other (Deferred) Laboratory Data (last 24 hrs) 02/20/20 11:37: PT 14.9 H, INR 1.27, APTT 31.9 02/20/20 11:37: WBC 11.4 H, Hgb 14.9, Hct 42.6, Plt Count 227 02/20/20 11:37: Sodium 130 L, Potassium 3.8, BUN 19 H, Creatinine 0.90, Glucose 283 H, Total Bilirubin 1.1 H, AST 24, ALT 20, Alkaline Phosphatase 51, Lipase 59 L - Problems (1) Pneumonia due to human coronavirus Current Visit: Yes Status: Acute Plan: Patient is 69 years of age admitted with pneumonia due to singh virus he is doing much better evaluate for home oxygen patient is a patchy ground-glass changes plan to discharge on steroids labs reviewed
[2020-02-21] MEDS: NA CHLORIDE 0.9% 1,000 ML IV SCH (10:20)
--- NOTE | 2020-02-21 10:34 | P.DS ---
Admission Date: 02/20/20 Discharge Date: 02/21/20 Disposition: ROUTINE DISCHARGE Discharge Condition: FAIR Reason for Admission: COVID pneumonia, hypoxia Consultations: Pulmonology: Dr. Alexander Procedures: CT chest abdomen pelvis FINDINGS: Bilateral ground-glass opacities within the lungs. No pleural effusion. No pericardial effusion. Calcified mediastinal lymph nodes. Mild fatty liver The spleen, pancreas, adrenals and kidneys appear unremarkable Atherosclerosis Normal appendix. No evidence of diverticulitis IMPRESSION: Moderate bilateral ground-glass opacities within the lungs probably Covid pneumonia Chest x-ray FINDINGS: Portable technique limits examination quality. Mildly prominent interstitial lung markings are seen, nonspecific. A mild interstitial pneumonitis is possible. The heart is normal in size. No displaced fractures Medical problem list COVID pneumonia with hypoxia Diabetes mellitus type 2 Hypothyroidism Hyperlipidemia Brief History of Present Illness: 69-year-old male with medical history of hypertension, diabetes mellitus type 2, hyperlipidemia presents emergency department for COVID symptoms. Patient reports that he tested positive for covid approximately 2 weeks ago but over the course of the last 1 week has been getting worse. Patient reports anorexia, dehydration, shortness of breath. Patient room air sats 88% in the emergency department, patient currently on 4 L per nasal cannula satting around 92%. Patient's workup in the emergency department was relatively benign. ED provider wishes to admit patient for further evaluation and management. Hospital Course: Patient remained on nasal cannula overnight, received IV steroids in addition to oral vitamins. Patient also received IV hydration. Patient did well overnight with no events. Patient states he is feeling better than he was yesterday. Patient did qualify for home oxygen therapy based on his room air saturations. Pulmonology evaluated patient this morning and believes that he is stable for discharge with home oxygen, steroids, inhalers. Patient in no respiratory distress, able to speak in full sentences clearly. Saturations in the 90s on 2/3 L per nasal cannula. Labs unremarkable this morning. Had long discussion with patient and regarding discharge instructions. At discharge patient will continue with prednisone 10 mg p.o. b.i.d. for 10 days, albuterol inhaler 2 puffs q 6 p.r.n. shortness of breath, Dulera 100 mcg inhaler. Patient will need to follow up with pulmonology for telemedicine visit in the next 1 week. Patient history of diabetes mellitus type 2 at discharge she will continue with NovoLog 70 30 FlexPen 30 units subcutaneous at supper, NovoLog 70 30 FlexPen 40 units subcu daily, Trulicity 1.5 mg subcutaneously daily, metformin 500 mg p.o. daily with breakfast, invokana at 300 mg p.o. daily. Patient history of hyperlipidemia, discharge patient will continue with rosuvastatin 20 mg p.o. daily. Patient is positive for COVID 19, the discharge patient need to be self jv rantine, recommend facial coverings maintain hygiene practices. Recommend repeat nasal swab 14 days from 1st positive test. Recommend continue with CDC guidelines. If patient becomes more short of breath at home despite oxygen and steroid therapy. He is to return to the emergency department for further evaluation. Vital Signs/Physical Exam: Temp Pulse Resp BP Pulse Ox 97.1 F 81 20 145/79 H 90 L 02/21/20 08:00 02/21/20 08:00 02/21/20 08:00 02/21/20 08:00 02/21/20 08:00 General: Alert, In no apparent distress HEENT: Atraumatic, PERRLA, EOMI Neck: Supple, JVD not distended Respiratory: Clear to auscultation bilaterally, Diminished Cardiovascular: Regular rate/rhythm, Normal S1 S2 Gastrointestinal: Normal bowel sounds, No tenderness Musculoskeletal: No tenderness Integumentary: No rashes Neurological: Normal speech, Normal tone, Normal affect Lymphatics: No axilla or inguinal lymphadenopathy Laboratory Data at Discharge: WBC 6.6 K/uL (4.3-10.9) D 02/21/20 03:18 Hgb 13.9 g/dL (13.6-17.9) 02/21/20 03:18 Hct 39.0 % (39.6-49.0) L 02/21/20 03:18 Plt Count 230 K/uL (152-406) 02/21/20 03:18 PT 14.9 SECONDS (9.5-12.5) H 02/20/20 11:37 INR 1.27 02/20/20 11:37 APTT 31.9 SECONDS (24.3-36.9) 02/20/20 11:37 Sodium 133 mmol/L (136-145) L 02/21/20 03:18 Potassium 4.5 mmol/L (3.5-5.1) 02/21/20 03:18 BUN 18 mg/dL (7-18) 02/21/20 03:18 Creatinine 0.75 mg/dL (0.55-1.3) 02/21/20 03:18 Glucose 274 mg/dL (74-106) H 02/21/20 03:18 Magnesium 2.4 mg/dL (1.8-2.4) 02/21/20 03:18 Total Bilirubin 1.1 mg/dL (0.2-1.0) H 02/20/20 11:37 AST 24 U/L (15-37) 02/20/20 11:37 ALT 20 U/L (12-78) 02/20/20 11:37 Alkaline Phosphatase 51 U/L (45-117) 02/20/20 11:37 Lipase 59 U/L (73-393) L 02/20/20 11:37 Home Medications: Canagliflozin [Invokana] 300 mg PO DAILY 02/20/20 Diclofenac Sodium 37.5 mg PO BEDTIME 02/20/20 Diclofenac Sodium [Voltaren] 37.5 mg PO DAILY 02/20/20 Dulaglutide [Trulicity] 1.5 mg SQ SEECOM 02/20/20 Fluoxetine HCl [Prozac] 20 mg PO DAILY 02/20/20 Insulin NPH Hum/Reg Insulin Hm [Novolin 70-30 Flexpen] 30 unit SQ DAILY AT SUPPER 02/20/20 Insulin NPH Hum/Reg Insulin Hm [Novolin 70-30 Flexpen] 40 units SQ DAILY 02/20/20 Meloxicam 1 tab PO DAILY 02/20/20 Metformin HCl [Glucophage*] 500 mg PO DAILY WITH BREAKFAST 02/20/20 Rosuvastatin Calcium 20 mg PO DAILY 02/20/20 Thyroid,Pork [Nature-Throid] 65 mg PO DAILY 02/20/20 Ubidecarenone [Co Q-10] 400 mg PO DAILY 02/20/20 Albuterol Inhaler [Ventolin Inhaler*] 2 puff IH Q6H PRN #1 hfa.aer.ad 02/21/20 Mometasone/Formoterol [Dulera 100 Mcg/5 Mcg Inhaler] 2 puff IH BID #1 inhaler 02/21/20 predniSONE [Deltasone*] 10 mg PO BID 10 Days #20 tab 02/21/20 New Medications: predniSONE [Deltasone*] 10 mg PO BID 10 Days #20 tab Mometasone/Formoterol [Dulera 100 Mcg/5 Mcg Inhaler] 2 puff IH BID #1 inhaler Albuterol Inhaler [Ventolin Inhaler*] 2 puff IH Q6H PRN #1 hfa.aer.ad PRN Reason: Shortness Of Breath Patient Discharge Instructions: 1. Please follow up with the primary care doctor to follow up this hospitalization. Please also follow up with pulmonology with a telemedicine visit. 2. Patient remained on nasal cannula overnight, received IV steroids in addition to oral vitamins, also received IV hydration. Patient did well overnight with no events, states he is feeling better than he was yesterday. Patient did qualify for home oxygen therapy based on his room air saturations. Pulmonology evaluated patient this morning and believes that he is stable for discharge with home oxygen, steroids, inhalers. Patient in no respiratory distress, able to speak in full sentences clearly. Saturations in the 90s on 2/3 L per nasal cannula. Labs unremarkable this morning. Had long discussion with patient and regarding discharge instructions. At discharge patient will continue with prednisone 10 mg p.o. b.i.d. for 10 days, albuterol inhaler 2 puffs q 6 p.r.n. shortness of breath, Dulera 100 mcg inhaler. Patient will need to follow up with pulmonology for telemedicine visit in the next 1 week. Patient history of diabetes mellitus type 2 at discharge she will continue with NovoLog 70 30 FlexPen 30 units subcutaneous at supper, NovoLog 70 30 FlexPen 40 units subcu daily, Trulicity 1.5 mg subcutaneously daily, metformin 500 mg p.o. daily with breakfast, invokana at 300 mg p.o. daily. Patient history of hyperlipidemia, discharge patient will continue with rosuvastatin 20 mg p.o. daily. Patient is positive for COVID 19, the discharge patient need to be self quarantine, recommend facial coverings maintain hygiene practices. Recommend repeat nasal swab 14 days from 1st positive test. Recommend continue with CDC guidelines. If patient becomes more short of breath at home despite oxygen and steroid therapy. He is to return to the emergency department for further evaluation. Diet: ADA Activity: Ad isac Time spent managing pt's care (in minutes): 55
[2020-02-21] MEDS: BUDESONIDE 0.5 MG/2 ML NEB NEB SCH ×2 (10:50→19:20)
[2020-02-21] MEDS: GUAIFENESIN/CODEINE 5ML UCUP PO PRN (22:10)
[2020-02-22] MEDS: dexAMETHasone 4 MG/ML VIAL IV SCH ×2 (01:47→07:59)
[2020-02-22 06:16] LABS: Absolute Lymphocytes (CBC) 0.4 K/uL (0.7-4.9); Basophils % 0.1 % (0-1.3); Lymphocytes % 5.7 % (15.3-44.8); MPV 8.8 fL (7.6-11.3)
[2020-02-22 06:40] LABS: BUN Blood Urea Nitrogen 19 mg/dL (7-18); Bicarbonate 26 mmol/L (21-32); Glucose Level 271 mg/dL (74-106); Magnesium 2.2 mg/dL (1.8-2.4); Potassium 4.3 mmol/L (3.5-5.1); Sodium Level 134 mmol/L (136-145)
[2020-02-22] MEDS: ENOXAPARIN 40 MG/0.4 ML SQ SCH (07:58)
[2020-02-22] MEDS: INSULIN -REGULAR HUMAN 50 UNIT/0.5 ML ML SQ SCH (07:59)
[2020-02-22] MEDS: THIAMINE HCL 100 MG TABLET PO SCH (07:59)
[2020-02-22] MEDS: ZINC SULFATE 220 MG CAP PO SCH (07:59)
[2020-02-22] MEDS: FOLIC ACID 1 MG TABLET PO SCH (07:59)
[2020-02-22 08:03] VITALS: BP 113/66; TEMP 97.2
[2020-02-22 10:14] VITALS: O2SAT 90
== END 2020-02-22 10:05 | disposition home or self-care (01) ==
LOC: ER 11:19 → 4TH 15:05
PROVIDERS: ADMIT Family Medicine; ATTEND Family Medicine
DX: U07.1 COVID-19 (principal); J12.89 Other viral pneumonia; R09.02 Hypoxemia; E86.0 Dehydration; R63.0 Anorexia; I45.10 Unspecified right bundle-branch block; E11.9 Type 2 diabetes mellitus without complications; E03.9 Hypothyroidism, unspecified; E78.5 Hyperlipidemia, unspecified; Z79.4 Long term (current) use of insulin; Z79.1 Long term (current) use of non-steroidal anti-inflammatories (NSAID); Z79.899 Other long term (current) drug therapy
CPT/HCPCS: 93005; 87040 ×2; 85025 ×3; 80048 ×3; 36415 ×2; 86900; 83735 ×2; 86850; 85610; 86870; 86901; 82947 ×7; 85379; 80076; 83605 ×2; 85730; 81015; 84484; 82728; 83690; 84145; 86140; 87804 ×2; 71260; 74177; 71045; 94640; 96375; 96374; 99285; Q9967; J1650 ×3; J1100; J7040; J7030 ×2; J2405; G0378 ×4

== ENCOUNTER 2020-02-25 23:36 | Emergency (ER) | payer OTHER, SELFPAY ==
--- OUTSIDE RECORDS SUMMARY | 2020-02-25 23:38 | XMS REPORT ---
[...] Problem Essential hypertension I10 Activ e Problem jail (current) use of insulin Z79.4 Active Problem GERD without esophagitis K21.9 Act li Problem Mixed hyperlipidemia E78.2 Active Problem Type 2 diabetes mellitus with E11.65 Active hyperglycemia Medications Medication Code System Code Instructions Start End Date Status Dos age Date Gabapentin [facility] 29574412290 100 MG Orally February 17, Active 1 capsule twice a day 2019 Results No Known Results Summary Purpose eClinicalWorks Submission
--- OUTSIDE RECORDS SUMMARY | 2020-02-25 23:38 | XMS REPORT ---
[...] Problem Essential hypertension I10 Activ e Problem [facility] (current) use of insulin Z79.4 Active Problem GERD without esophagitis K21.9 Act li Problem Mixed hyperlipidemia E78.2 Active Problem Type 2 diabetes mellitus with E11.65 Active hyperglycemia Medications Medication Code Code Instructions Start End Status Dosage System Date Date Invokana [facility] 03531462731 300 mg orally Active 1 tab let once a day Metformin HCl [facility] 44920611217 1000 MG Orally Active 1 tablet Once a day with a meal Nature-Throid [facility] 42659626308 65 MG Orally Active 1 tablet on Once a day an empty stomach Meloxicam ND 75760755321 15 MG Orally Active 1 tab let Once a day Rosuvastatin [facility] 16590808627 20 MG Orally Active 1 tablet Calcium Once a day Fluoxetine HCl [facility] 72931245856 20 MG Orally Active 1 capsule Once a day Co Q-10 [facility] 57290337797 400 MG Orally Active 1 caps ule PRN with a meal NovoLIN 70/[address] [facility] 67066135674 (70-30) 100 Active in ject 40 FlexPen UNIT/ML units Subcutaneous Once a day Trulicity [facility] 55402302361 1.5 MG/0.5ML October Active as di rected Subcutaneous 2019, [facility] 652[facility] 0.75mg/0.5ml SQ Active on e once a week injection Results No Known Results Summary Purpose eClinicalWorks Submission
--- OUTSIDE RECORDS SUMMARY | 2020-02-25 23:38 | XMS REPORT ---
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 Active Problem GERD without esophagitis K21.9 Act li Problem Mixed hyperlipidemia E78.2 Active Problem Type 2 diabetes mellitus with E11.65 Active hyperglycemia Assessment medical terminologist (current) use of insulin Z79.4 Active Assessment [...] End Status Dosage System Date Date Meloxicam [facility] 24309089888 15 MG Orally Active 1 tab let Once a day NovoLIN 70/30 ND 72917835284 (70-30) 100 Inactive i nject 40 FlexPen UNIT/ML units Subcutaneous Once a day Tresiba ND 36857786763 200 UNIT/ML December 25, Active Inject 6 0 FlexTouch Subcutaneous QD 2020 units Trulicity [facility] 23133332560 1.5 MG/0.5ML Active as di rected Subcutaneous Once a week Nature-Throid [facility] 96312946777 65 MG Orally Active 1 tablet on Once a day an empty stomach Co Q-10 [facility] 86148555135 400 MG Orally Active 1 caps ule PRN with a meal Metformin HCl ND 26347729498 1000 MG Orally Active 1 tablet Once a day with a meal Rosuvastatin [facility] 96735373266 20 MG Orally Active 1 tablet Calcium Once a day Fluoxetine HCl [facility] 23358233637 20 MG Orally Active 1 capsule Once a day Invokana [facility] 60209678415 300 mg orally Active 1 tab let once a day Trulicity [facility] 78708483899 0.75mg/0.5ml SQ Active on e once a week injection Results No Known Results Summary Purpose eClinicalWorks Submission
--- OUTSIDE RECORDS SUMMARY | 2020-02-25 23:38 | XMS REPORT ---
[...] Problem Essential hypertension I10 Activ e Problem [facility] living (current) use of insulin Z79.4 Active Problem GERD without esophagitis K21.9 Act li Problem Mixed hyperlipidemia E78.2 Active Problem Type 2 diabetes mellitus with E11.65 Active hyperglycemia Medications No Known Medications Results No Known Results Summary Purpose eClinicalCoinKeeper Submission
--- OUTSIDE RECORDS SUMMARY | 2020-02-25 23:38 | XMS REPORT | Continuity of Care Document ---
:1950 Author Organization [facility] t Address [address] [place] [address] Care Team Providers Name Role Phone Unavailable [...] s - disorder disorder [facility] a l [facility] Acquired Acquired Problem [facility] hypothyroi Charlene kes - dism dism [facility] Essential Essential Problem Active [facility] hypertensi hypertensi Charlene kes - on on [facility]oria [facility] custodial custodial Problem Active [facility] (current) (current) Luke s - use of use of Memoria insulin insulin l [facility] GERD GERD Problem Active [facility] without without [facility] - esophagiti esophagiti Me moria s s l [facility] Mixed Mixed Problem Active [facility] hyperlipid hyperlipid Charlene kes - emia emia [facility] Type 2 Type [address] [facility] diabetes diabetes [facility]ukes - mellitus mellitus Memori a with with l hyperglyce hyperglyce [facility] tpati sera sera ent Clinics Allergies, Adverse Reactions, Alerts Allergy Allergy Status Severity Reaction(s) Onset Inactive Treating Comm ents Source Name Type Date Date Clinician Sulfacet Adverse Active Rash [facility] amide Reaction [facility] - Sodium [facility] Medications Ordered Filled Start Stop Current Ordering Indication Dosage Frequency Signature Comments Components Source Medication Medication Date Date Medication? Clinician (SIG) Name Name Gabapentin Gabapentin Yes Marshall [address] [facility] 7-20 [facility] - 00:00: [facility]oria 00 l [facility] Procedures This patient has no known procedures. Encounters Start End Encounter Admission Attending Care Care Encounter Source Date/Time Date/Time Type Type Clinicians Facility Department ID 2020-02-22 2020-02-22 [facility] [id number] [facility] 14:42[facility]00 14:42:00 t [facility] Medicine Outpati ent Clinics 2020-02-18 2020-02-18 [facility] [id number] 10:25:00 10:25:00 t [facility] Medicine Outpat[facility] Clinics 2019-12-26 2019-12-26 [facility] [id number] 11:00:00 11:00:00 t [facility] Medicine Outpat[facility] Clinics 2019-12-26 2019-12-26 [facility] [id number] 11:00:00 11:00:00 t [facility] Medicine Outpat[facility] Clinics 2019-11-23 2019-11-23 [facility] [id number] 13:13:00 13:13:00 t [facility] Medicine Outpati [facility] Clinics 2019-11-21 2019-11-21 [facility] [id number] 11:00:00 11:00:00 t [facility] Out[facility] Clin[facility] Results This patient has no known results.
[2020-02-26 00:17] LABS: Absolute Lymphocytes (CBC) 0.4 K/uL (0.7-4.9); Basophils % 0.1 % (0-1.3); Hematocrit 43.3 % (39.6-49.0); Lymphocytes % 5.3 % (15.3-44.8); MPV 8.4 fL (7.6-11.3); RBC Red Blood Cell Count 4.98 M/uL (4.33-5.43)
[2020-02-26 00:18] LABS: Protime INR 1.47
[2020-02-26] MEDS ORDERED: METHYLPREDNISOLONE 125 MG INJ ONE (00:18)
[2020-02-26 00:31] LABS: ALT/SGPT 17 U/L (12-78); AST/SGOT 17 U/L (15-37); Albumin 2.5 g/dL (3.4-5.0); Alkaline Phosphatase 67 U/L (45-117); BUN Blood Urea Nitrogen 13 mg/dL (7-18); Bicarbonate 28 mmol/L (21-32); Bilirubin Direct 0.3 mg/dL (0-0.2); Bilirubin Total 1.2 mg/dL (0.2-1.0); Glucose Level 278 mg/dL (74-106); Magnesium 1.9 mg/dL (1.8-2.4); NT PRO-BNP 181 pg/mL (<125); Potassium 3.8 mmol/L (3.5-5.1); Protein, Total 7.1 g/dL (6.4-8.2); Sodium Level 130 mmol/L (136-145)
[2020-02-26 00:47] LABS: Blood Morphology Comment NOT SEEN (NOT SEEN); Platelet Estimate ADEQ
--- NOTE | 2020-02-26 00:53 | EDPHYS ---
Physician Documentation [facility] Name: Hasmukh Martin Age: 69 yrs Sex: Male : 1950 Arrival Date: 02/25/2020 Time: 23:37 Bed 5 Private MD: ED Physician Sean Ferro HPI: 02/25 00:23 This 69 yrs old Male presents to ER via EMS with complaints of COVID ma2 POSITIVE, Breathing Difficulty. 00:23 The patient has shortness of breath with light activity. Onset: The symptoms/episode ma2 began/occurred gradually, 1 week(s) ago. Duration: The symptoms are continuous. Associated signs and symptoms: Pertinent negatives: non-productive cough, dizziness, nausea, visual changes. Severity of symptoms: At their worst the symptoms were moderate in the emergency department the symptoms are unchanged. The patient has not experienced similar symptoms in the past. Historical: - Allergies: 02/24 23:57 Sulfa (Sulfonamide Antibiotics); lp1 - PMHx: 23:57 Diabetes - NIDDM; lp1 - PSHx: 23:57 None; lp1 - Immunization history:: Adult Immunizations up to date. - Social history:: Smoking status: Patient denies any tobacco usage or history of. Patient/guardian denies using alcohol, street drugs, The patient lives with family. - Family history:: not pertinent. ROS: 02/25 00:23 Constitutional: Negative for fever, chills, and weight loss. ma2 All other systems are negative. Exam: 00:23 Constitutional: This is a well developed, well nourished patient who is awake, alert, ma2 and in no acute distress. Eyes: Pupils equal round and reactive to light, extra-ocular motions intact. Lids and lashes normal. Conjunctiva and sclera are non-icteric and not injected. Cornea within normal limits. Periorbital areas with no swelling, redness, or edema. Chest/axilla: Normal chest wall appearance and motion. Nontender with no deformity. No lesions are appreciated. Cardiovascular: Regular rate and rhythm with a normal S1 and S2. No gallops, murmurs, or rubs. Normal PMI, no JVD. No pulse deficits. Respiratory: patient is 4 L NS saturation is 91.. he is comfortable not in respiratory distress Lungs have equal breath sounds bilaterally, clear to auscultation and percussion. No rales, rhonchi or wheezes noted. No increased work of breathing, no retractions or nasal flaring. Abdomen/GI: Soft, non-tender, with normal bowel sounds. No distension or tympany. No guarding or rebound. No evidence of tenderness throughout. MS/ Extremity: Pulses equal, no cyanosis. Neurovascular intact. Full, normal range of motion. Neuro: Awake and alert, GCS 15, oriented to person, place, time, and situation. Cranial nerves II-XII grossly intact. Motor strength 5/5 in all extremities. Sensory grossly intact. Cerebellar exam normal. Normal gait. Vital Signs: 02/24 23:30 BP 131 / 84; Pulse 83; Resp 26; Temp 98.7(O); Pulse Ox 92% on 4 lpm NC; Weight 83.91 kg lp1 (R); Height 5 ft. 11 in. (180.34 cm); 02/25 00:00 BP 132 / 69; Pulse 80; Resp 24; Pulse Ox 92% on 5 lpm NC; lp1 01:15 BP 144 / 83; Pulse 81; Resp 21; Pulse Ox 93% on 5 lpm NC; lp1 02/24 23:30 Body Mass Index 25.80 (83.91 kg, 180.34 cm) lp1 MDM: 02/24 23:45 Patient medically screened. ma2 02/25 00:29 Differential diagnosis: pneumonia, Pneumothorax pulmonary edema, reactive airway ma2 disease. Antibiotic administration: Not indicated. Data reviewed: vital signs, nurses notes. Counseling: I had a detailed discussion with the patient and/or guardian regarding: the historical points, exam findings, and any diagnostic results supporting the discharge/admit diagnosis, the presence of at least one elevated blood pressure reading (>120/80) during this emergency department visit, the need for outpatient follow up. ED course: patient has O2 at home and usually he is on 2L, saturation now is 92 with 4L O2 via NC. . 02/24 23:46 Order name: Basic Metabolic Panel; Complete Time: 00:53 wa2 02/24 23:46 Order name: CBC with Diff; Complete Time: 00:53 wa2 02/24 23:46 Order name: LFT's; Complete Time: 00:53 [facility] 02/24 23:46 Order name: Magnesium; Complete Time: 00:53 [facility] 02/24 23:46 Order name: NT PRO-BNP; Complete Time: 00:53 [facility] 02/24 23:46 Order name: PT-INR; Complete Time: 00:53 [facility] 02/24 23:46 Order name: XRAY Chest (1 view) [facility] 02/24 23:46 Order name: Cardiac monitoring; Complete Time: 00:11 [facility] 02/24 23:46 Order name: EKG - Nurse/Tech; Complete Time: 00:11 [facility] 02/24 23:46 Order name: IV Saline Lock; Complete Time: 00:11 [facility] 02/24 23:46 Order name: Labs collected and sent; Complete Time: 00:11 [facility] 02/24 23:46 Order name: O2 Per Protocol; Complete Time: 00:11 [facility] 02/25 00:25 Order name: Manual Differential; Complete Time: 00:53 [facility] 02/24 23:46 Order name: O2 Sat Monitoring; Complete Time: 00:11 [facility] Administered Medications: 00:11 Drug: MethylPrednisoLONE 125 mg Route: IVP; Site: right forearm; rv 01:44 Follow up: Response: No adverse reaction lp1 Disposition: 02/26/20 00:52 Discharged to Home. Impression: Coronavirus infection, unspecified. - Condition is Stable. - Discharge Instructions: COVID-19. - Medication Reconciliation Form, Thank You Letter, Antibiotic Education, Prescription Opioid Use form. - Follow up: Private Physician; When: Tomorrow; Reason: Continuance of care. Signatures: Dispatcher [employer] EDNeelima Rasmussen RN RN lp1 Sean Ferro MD MD ma2 Ilir Cavanaugh RN RN rv Corrections: (The following items were deleted from the chart) 01:44 00:52 02/26/2020 00:52 Discharged to Home. Impression: Coronavirus infection, lp1 unspecified. Condition is Stable. Forms are Medication Reconciliation Form, Thank You Letter, Antibiotic Education, Prescription Opioid Use. Follow up: Private Physician; When: Tomorrow; Reason: Continuance of care. ma2
--- NOTE | 2020-02-26 00:53 | ER ---
Nurse's Notes [facility] Name: Hasmukh Martin Age: 69 yrs Sex: Male : 1950 Arrival Date: 02/25/2020 Time: 23:37 Bed 5 Private MD: Diagnosis: Coronavirus infection, unspecified Presentation: 02/24 23:30 Chief complaint: EMS states: Called for patient with shortness of breath; recently lp1 discharged from hospital, COVID POSITIVE, pneumonia; Discharged home with home O2; Patient states could not get O2 saturation above 88%. 23:30 Coronavirus screen: Patient is COVID POSITIVE Prior COVID test. Ebola Screen: No lp1 symptoms or risks identified at this time. Initial Sepsis Screen: Does the patient meet any 2 criteria? No. Patient's initial sepsis screen is negative. Does the patient have a suspected source of infection? No. Patient's initial sepsis screen is negative. Risk Assessment: Do you want to hurt yourself or someone else? Patient reports no desire to harm self or others. Onset of symptoms was February 25, 2020. 23:30 Method Of Arrival: EMS: [facility] lp1 23:30 Acuity: MARTA 3 lp1 Historical: - Allergies: 23:57 Sulfa (Sulfonamide Antibiotics); lp1 - PMHx: 23:57 Diabetes - NIDDM; lp1 - PSHx: 23:57 None; lp1 - Immunization history:: Adult Immunizations up to date. - Social history:: Smoking status: Patient denies any tobacco usage or history of. Patient/guardian denies using alcohol, street drugs, The patient lives with family. - Family history:: not pertinent. Screenin:59 Abuse screen: Denies threats or abuse. Denies injuries from another. Nutritional lp1 screening: No deficits noted. Tuberculosis screening: No symptoms or risk factors identified. Fall Risk None identified. Assessment: 02/25 00:00 General: Appears in no apparent distress. Behavior is appropriate for age. Pain: lp1 Complains of pain in chest Aggravated by coughing. Neuro: Level of Consciousness is awake, alert, obeys commands, Oriented to person, place, time, situation. Cardiovascular: Patient's skin is warm and dry. Respiratory: Reports shortness of breath cough that is pain with cough Airway is patent Trachea Respiratory effort is even, Respiratory pattern is regular, Breath sounds are diminished bilaterally. the patient has mild shortness of breath. GI: No signs and/or symptoms were reported involving the gastrointestinal system. : No signs and/or symptoms were reported regarding the genitourinary system. EENT: No signs and/or symptoms were reported regarding the EENT system. Derm: Skin is intact, Skin is dry, Skin is normal. Musculoskeletal: No deficits noted. 01:15 Reassessment: Patient appears in no apparent distress at this time. Patient aware of lp1 pending admission; demonstrates understanding of Provider's discharge instructions and use of home O2. 01:43 Reassessment: [facility] at bedside to transfer home. lp1 Vital Signs: 02/24 23:30 BP 131 / 84; Pulse 83; Resp 26; Temp 98.7(O); Pulse Ox 92% on 4 lpm NC; Weight 83.91 kg lp1 (R); Height 5 ft. 11 in. (180.34 cm); 02/25 00:00 BP 132 / 69; Pulse 80; Resp 24; Pulse Ox 92% on 5 lpm NC; lp1 01:15 BP 144 / 83; Pulse 81; Resp 21; Pulse Ox 93% on 5 lpm NC; lp1 02/24 23:30 Body Mass Index 25.80 (83.91 kg, 180.34 cm) lp1 ED Course: 02/24 23:37 Patient arrived in ED. cf2 23:45 Sean Ferro MD is Attending Physician. ma2 23:54 Neelima Malcolm, ROZ is Primary Nurse. lp1 23:57 Triage completed. lp1 23:57 Arm band placed on right wrist. lp1 23:59 Patient has correct armband on for positive identification. Bed in low position. Call lp1 light in reach. quality assurance monitor final on. Pulse ox on. NIBP on. 02/25 00:02 Inserted saline lock: 18 gauge in right forearm, using aseptic technique. Blood rv collected. 00:14 XRAY Chest (1 view) In Process Unspecified. EDMS 00:28 EKG done, by ED staff. tt3 01:43 No provider procedures requiring assistance completed. IV discontinued, No lp1 redness/swelling at site. Pressure dressing applied. Administered Medications: 00:11 Drug: MethylPrednisoLONE 125 mg Route: IVP; Site: right forearm; rv 01:44 Follow up: Response: No adverse reaction lp1 Outcome: 00:52 Discharge ordered by . emy2 01:44 Discharged to home via ambulance. lp1 01:44 Condition: stable 01:44 Discharge instructions given to patient, Instructed on discharge instructions, follow up and referral plans. Demonstrated understanding of instructions, follow-up care. 01:44 Patient left the ED. lp1 Signatures: Dispatcher [employer] EDMS Neelima Malcolm RN RN lp1 Sean Ferro MD MD ma2 Ilir Cavanaugh RN RN Priscilla Xavier cf2 Kaleb Hawkins tt3
[2020-02-26 02:04] VITALS: BP 144/83; O2SAT 93
--- NOTE | 2020-02-26 08:34 | RAD REPORT ---
EXAM DESCRIPTION: RAD - Chest Single View - 02/26/2020 12:11 am CLINICAL HISTORY: COUGH Chest pain. COMPARISON: Chest Single View dated 02/20/2020; Chest Abdomen Pelvis W Cont dated 02/20/2020 FINDINGS: Portable technique limits examination quality. Moderate bilateral pulmonary opacities are present, moderately progressive since the comparative ches t radiograph. The heart is mildly enlarged in size. No displaced fractures. IMPRESSION: Moderate worsening in bilateral pulmonary opacities since comparative study.
--- NOTE | 2020-02-28 07:38 | EKG ---
Test Date: 2020-02-26 Test Time: 00:19:37 Tube Wrapper: TLT MEASUREMENT RESULTS: Intervals: Rate: 77 UT: 148 QRSD: 100 QT: 420 QTc: 475 Elmo: P: 48 UT: 148 QRS: -18 T: 25 INTERPRETIVE STATEMENTS: Normal sinus rhythm Incomplete right bundle branch block Borderline ECG Compared to ECG 02/20/2020 11:45:45 No significant changes Electronically Signed On 02-28-20 07:33:03 CDT by Dean Clay
== END 2020-02-26 01:44 | disposition home or self-care (01) ==
LOC: ER 23:36
DX: U07.1 COVID-19 (principal); Z88.2 Allergy status to sulfonamides
CPT/HCPCS: 36415; 71045; 80048; 80076; 83735; 83880; 85025; 85610; 93005; 96374; 99285; J2930

== ENCOUNTER 2020-05-18 20:07 | Observation (INO) | payer OTHER ==
--- OUTSIDE RECORDS SUMMARY | 2020-05-18 20:08 | XMS REPORT | Continuity of Care Document ---
:1950 Author Organization [facility] t Address [address] [place] [address] Care Team Providers Name Role Phone Unavailable Unavailable Unavailable Problems This patient has no known problems. Allergies, Adverse Reactions, Alerts Allergy Allergy Status Severity Reaction(s) Onset Inactive Treating Comm ents Source Name Type Date Date Clinician Sulfacet Adverse Active Rash [facility] amide Reaction [facility] - Sodium [facility] Medications Ordered Filled Start Stop Current Ordering Indication Dosage Frequency Signature Comments Components Source Medication Medication Date Date Medication? Clinician (SIG) Name Name Benzonatate Benzonatate 0 2020- Yes Marshall [address] [facility] 9-10 09-25 [facility] - 00:00: 00:00 [facility] 00 :[facility] Flomax Flomax 0 Yes Marshall [address] [facility] - 00:00: [facility] 00 [facility] Gabapentin Gabapentin 0 Yes Marshall [address] [facility] 7-20 [facility] - 00:00: [facility]oria 00 [facility] Invokana Invokana Yes Marshall [address] [facility] - [facility] Tresiba Tresiba Yes Marshall Inject [address] FlexTouch FlexTouch Fournier units Nellie es - Memoria l [facility] Nature-Thro Nature-Thro Yes Marshall [address] [facility] id id Fournier on an [facility]ukes - empty Memoria stomach l [facility] Co Q-10 Co Q-10 Yes Marshall [address] [facility] with a [facility]ukes - meal [facility] Clin[facility] Fluoxetine Fluoxetine Yes Marshall [address] [facility] HCl HCl [facility] Rosuvastati Rosuvastati Yes Marshall [address] [facility] n Calcium n Calcium Fournier Luke s - [facility] ent Clinics Meloxicam Meloxicam Yes Marshall [address] [facility] Metformin Metformin Yes Marshall [address] [facility] HCl HCl Fournier with a [facility] - meal [facility] Clinics Trulicity Trulicity 2020- No Marshall as [facility] 08[facility]08 [facility] directed [facility] - 00:00 Memoria :00 l Outpati ent Clinics Procedures This patient has no known procedures. Encounters Start End Encounter Admission Attending Care Care Encounter Source Date/Time Date/Time Type Type Clinicians Facility Department ID 2020-04-25 2020-04-25 Outpatient [facility] [id number] [facility] 2020-04-25 2020-04-25 Outpatient [facility] [id number] [facility] 2020-04-10 2020-04-10 [facility] [id number] 08:20:00 08:20:00 t [employer] [facility] l Medicine Outpati ent Clinics 2020-03-31 2020-03-31 [facility] [id number] [facility] 14:15:00 14:15:00 t Specialty/U Charlene kes - Specialty rology [facility] a /Urology Clinic l Clinic Outpati ent Clinics 2020-03-21 2020-03-21 [facility] [id number] 12:03:00 12:03:00 t [employer] [facility] Medicine l Medicine Outpati ent Clinics 2020-03-20 2020-03-20 [facility] [id number] 10:52:00 10:52:00 t [employer] [facility] Medicine l Medicine Outpati ent Clinics 2020-03-11 2020-03-11 [facility] [id number] 08:15:00 08:15:00 t [facility] Medicine Outpati ent Clinics 2020-02-25 2020-02-25 [facility] [id number] 14:20:00 14:20:00 t [employer] [facility] Medicine Outpati ent Clinics 2020-02-24 2020-02-24 [facility] [id number] 09:21:00 09:21:00 t [employer] [facility] Medicine Outpati ent Clinics 2020-02-22 2020-02-22 [facility] [id number] 14[facility]42:00 14:42:00 t [employer] [facility] Medicine Outpati ent Clinics 2020-02-18 2020-02-18 [facility] [id number] [facility] 10:25:00 10:25:00 t [employer] [facility] Medicine Outpati ent Clinics 2019-12-26 2019-12-26 [facility] [id number] 11:00:00 11:00:00 t [employer] [facility] Medicine Outpati ent Clinics 2019-12-26 2019-12-26 [facility] [id number] [facility] 11:00:00 11:00:00 t [employer] [facility] Medicine Outpati ent Clinics 2019-11-23 2019-11-23 [facility] [id number] [facility] 13:13:00 13:13:00 t [employer] [facility] Medicine Outpati ent Clinics 2019-11-21 2019-11-21 [facility] [id number] [facility] 11:00:00 11:00:00 t [employer] [facility] Medicine Outpati ent Clinics Results This patient has no known results.
--- OUTSIDE RECORDS SUMMARY | 2020-05-18 20:08 | XMS REPORT ---
[...] Problem Essential hypertension I10 Activ e Problem prison (current) use of insulin Z79.4 Active Problem GERD without esophagitis K21.9 Act li Problem Mixed hyperlipidemia E78.2 Active Problem Type 2 diabetes mellitus with E11.65 Active hyperglycemia Medications No Known Medications Results No Known Results Summary Purpose eClinicalA-Gas Submission
--- OUTSIDE RECORDS SUMMARY | 2020-05-18 20:08 | XMS REPORT ---
[...] Problem Essential hypertension I10 Activ e Problem shelter (current) use of insulin Z79.4 Active Problem GERD without esophagitis K21.9 Act li Problem Mixed hyperlipidemia E78.2 Active Problem Type 2 diabetes mellitus with E11.65 Active hyperglycemia Medications No Known Medications Results No Known Results Summary Purpose [employer] Submission
--- OUTSIDE RECORDS SUMMARY | 2020-05-18 20:08 | XMS REPORT ---
[...] Problem Essential hypertension I10 Activ e Problem [facility] (current) use of insulin Z79.4 Active Problem GERD without esophagitis K21.9 Act li Problem Mixed hyperlipidemia E78.2 Active Problem Type 2 diabetes mellitus with E11.65 Active hyperglycemia Medications Medication Code System Code Instructions Start End Date Status Dos age Date Gabapentin [facility] 73804195606 100 MG Orally February 17, Active 1 capsule twice a day 2019 Results No Known Results Summary Purpose eClinicalWorks Submission
--- OUTSIDE RECORDS SUMMARY | 2020-05-18 20:08 | XMS REPORT ---
[...] Problem Essential hypertension I10 Activ e Problem correction (current) use of insulin Z79.4 Active Problem GERD without esophagitis K21.9 Act li Problem Mixed hyperlipidemia E78.2 Active Problem Type 2 diabetes mellitus with E11.65 Active hyperglycemia Medications No Known Medications Results No Known Results Summary Purpose [employer] Submission
--- OUTSIDE RECORDS SUMMARY | 2020-05-18 20:09 | XMS REPORT ---
:1950 Author Organization eClinicalWorks Care Team Providers Name Role Phone Shantanu [facility]ly [facility] Provider Role Unavailable Allergies No Known Allergies Problems Problem Type Condition Code Onset Dates Condition Statu s Problem GERD without esophagitis K21.9 Act li Problem Current moderate episode of major F32.1 Active depressive disorder without prior episode Assessment Difficulty in urination R39.198 Acti ve Problem Essential hypertension I10 Activ e Problem Generalized anxiety disorder F41.1 Active Problem Requires supplemental oxygen Z99.81 Active Problem Type 2 diabetes mellitus with E11.65 Active hyperglycemia Problem 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
--- OUTSIDE RECORDS SUMMARY | 2020-05-18 20:09 | XMS REPORT ---
:1950 Author Organization eClinicalWorks Care Team Providers Name Role Phone Shantanu Marshall Provider Role Unavailable Allergies No Known Allergies Problems Problem Type Condition Code Onset Dates Condition Statu s Problem GERD without esophagitis K21.9 Act li Problem Current moderate episode of major F32.1 Active depressive disorder without prior episode Assessment Acute respiratory disease J06.9 Ac tive Assessment Requires supplemental oxygen Z99.81 Active Assessment COVID-19 U07.1 Active Assessment Other viral pneumonia J12.89 Active Problem Essential hypertension I10 Activ e Problem Generalized anxiety disorder F41.1 Active Problem Requires supplemental oxygen Z99.81 Active Problem Type 2 diabetes mellitus with E11.65 Active hyperglycemia Problem snf (current) use of insulin Z79.4 Active Problem Acquired hypothyroidism E03.9 Acti ve Problem Mixed hyperlipidemia E78.2 Active Medications No Known Medications Results No Known Results Summary Purpose eClinicalWorks Submission
--- OUTSIDE RECORDS SUMMARY | 2020-05-18 20:09 | XMS REPORT ---
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 disorder without prior episode Problem Essential hypertension I10 Activ e Assessment Mixed hyperlipidemia E78.2 Active Problem Generalized anxiety disorder F41.1 Active Assessment Primary osteoarthritis involving M89.49 Active multiple joints Assessment [facility] (current) use of insulin Z79.4 Active Problem Requires supplemental oxygen Z99.81 Active Problem Type 2 diabetes mellitus with E11.65 Active hyperglycemia Problem [facility] (current) use of insulin Z79.4 Active Problem Acquired hypothyroidism E03.9 Acti ve Problem Mixed hyperlipidemia E78.2 Active Assessment Other viral pneumonia J12.89 Active Assessment Acquired hypothyroidism E03.9 Acti ve Assessment GERD without esophagitis K21.9 Act li Assessment Irritability and anger R45.4 Activ e Assessment Type 2 diabetes mellitus with E11.65 Active hyperglycemia Assessment Requires supplemental oxygen Z99.81 Active Assessment Lower urinary tract symptoms (LUTS) R39.9 Active Assessment Essential hypertension I10 Activ e Assessment Acute respiratory disease J06.9 Ac tive Assessment Generalized anxiety disorder F41.1 Active Assessment Current moderate episode of major F32.1 Active depressive disorder without prior episode Assessment COVID-19 U07.1 Active Medications Medication Code Code Instructions Start End Status Dosage System Date Date Nature-Throid [facility] 71421435757 65 MG Orally Active 1 tablet on Once a day an empty stomach Co Q-10 [facility] 18892208634 400 MG Orally Active 1 caps ule PRN with a meal Gabapentin ND 29321594677 100 MG Orally February 17, Active 1 capsule twice a day 2019 Trulicity [facility] 52794917936 1.5 MG/0.5ML Active as di rected Subcutaneous Once a week Meloxicam ND 06794528746 15 MG Orally Active 1 tab let Once a day Metformin HCl [facility] 24850837536 1000 MG Orally Active 1 tablet Once a day with a meal Fluoxetine HCl [facility] 82356144162 20 MG Orally Active 1 capsule Once a day Rosuvastatin [facility] 93574028381 20 MG Orally Active 1 tablet Calcium Once a day Tresiba [facility] 29741717693 200 UNIT/ML Active Inject 6 0 FlexTouch Subcutaneous QD units Invokana [facility] 15961879067 300 mg orally Active 1 tab let once a day Results No Known Results Summary Purpose eClinicalWorks Submission
--- OUTSIDE RECORDS SUMMARY | 2020-05-18 20:09 | XMS REPORT ---
:1950 Author Organization eClinicalWorks Care Team Providers Name Role Phone Rhea Pope Provider Role Unavailable Allergies, Adverse Reactions, Alerts Substance Reaction Event Type Sulfacetamide Sodium Rash Drug Allergy Problems Problem Type Condition Code Onset Dates Condition Statu s Problem GERD without esophagitis K21.9 Act li Problem Current moderate episode of major F32.1 Active depressive disorder without prior episode Assessment History of kidney stones Z87.442 Act li Assessment Difficulty urinating R39.198 Active Problem Essential hypertension I10 Activ e Problem Generalized anxiety disorder F41.1 Active Problem Requires supplemental oxygen Z99.81 Active Problem Type 2 diabetes mellitus with E11.65 Active hyperglycemia Problem [facility] (current) use of insulin Z79.4 Active Problem Acquired hypothyroidism E03.9 Acti ve Problem Mixed hyperlipidemia E78.2 Active Medications Medication Code Code Instructions Start End Status Dosage System Date Date Invokana [facility] 14723391949 300 mg orally Active 1 tab let once a day Trulicity [facility] 87938755712 1.5 MG/0.5ML Active as di rected Subcutaneous Once a week Flomax [facility] 80441308150 0.4 MG Orally Mar 20, Active 1 caps ule Once a day 2019 Tresiba [facility] 20334321441 200 UNIT/ML Active Inject 6 0 FlexTouch Subcutaneous QD units Nature-Throid [facility] 84869299983 65 MG Orally Active 1 tablet on Once a day an empty stomach Co Q-10 [facility] 48174596641 400 MG Orally Active 1 caps ule PRN with a meal Fluoxetine HCl ND 52668234347 20 MG Orally Active 1 capsule Once a day Rosuvastatin ND 44759820981 20 MG Orally Active 1 tablet Calcium Once a day Gabapentin ND 04515405406 100 MG Orally February 17, Active 1 capsule twice a day 2019 Meloxicam ND 03853998720 15 MG Orally Active 1 tab let Once a day Metformin HCl ND 59437767269 1000 MG Orally Active 1 tablet Once a day with a meal Results No Known Results Summary Purpose eClinicalWorks Submission
--- OUTSIDE RECORDS SUMMARY | 2020-05-18 20:10 | XMS REPORT ---
:1950 Author Organization [facility] Address [address] [place] [address] Care Team Providers Name Role Phone Fournier Unavailable [phone] PROBLEMS Type Condition ICD9-CM [id number] Onset Condition SNOMED Code Notes Code Code Dates Status Problem Current moderate F32.1 Active 39671056 episode of major depressive disorder without prior episode Problem GERD without K21.9 Active 672797560 esophagitis Problem alf Z79.4 Active 925717452 (current) use of insulin Problem Essential I10 Active 56510695 hypertension Problem Requires Z99.81 Active 986731267412 supplemental oxygen Problem Type 2 diabetes E11.65 Active 72274541 mellitus with hyperglycemia Problem Mixed E78.2 Active 757770555 hyperlipidemia Problem Acquired E03.9 Active 514296651 hypothyroidism Problem Generalized F41.1 Active 21743153 anxiety disorder ALLERGIES Allergen (clinical drug Drug/Non Drug Allergy Reaction Allergy Type Onset Date Status ingredient) documented on EMR sulfacetamide Sulfacetamide Rash Drug Allergy Active Sodium([facility] Code:[address]-01) ENCOUNTERS from 1950 to 2020-04-28 Encounter Location Date Provider Diagnosis [facility] [address] [place] [facility] [address], [place] [address] IMMUNIZATIONS Vaccine Route Administration Date Status FluAD Unknown November 09, 2017 Administered Pneumovax (PPSV23) Unknown November 07, 2012 Administered Adacel (Tdap) Unknown November 16, 2012 Administered Zostavax Unknown November 14, 2012 Administered SOCIAL HISTORY Tobacco Use: Social History Observation Description Date Details (start date - stop date) Never Smoker Sex Assigned At : Social History Observation Description Sex Assigned At Unknown PHQ9 Question Answer Notes Little interest or pleasure in doing things Several days Feeling down, depressed, or hopeless Several days Trouble falling or staying asleep or sleeping too much Not a t all Feeling tired or having little energy Not at all Poor appetite or overeating Not at all Feeling bad about yourself, or that you are a failure, or No t at all have let yourself or your family down Trouble concentrating on things, such as reading the Not at all newspaper or watching television Moving or speaking so slowly that other people could have No t at all noticed; or the opposite, being so fidgety or restless that you have been moving around a lot more than usual Total Score 2 Interpretation Minimal Depression Thoughts that you would be better off or of hurting Not at all yourself in some way Alcohol Screen Question Answer Notes Did you have a drink containing alcohol in the past year? No Points 0 Interpretation Negative Tobacco Use/Smoking Question Answer Notes Are you a never smoker REASON FOR REFERRAL No Information VITAL SIGNS No information MEDICATIONS Medication SIG (Take, Route, Start Date End Date Status Frequency, Duration) Invokana 300 mg 1 tablet orally once a day Active for 90 days Gabapentin 100 MG 1 capsule Orally twice a Jan, Active day for 30 day(s) Meloxicam 15 MG 1 tablet Orally Once a day Active for 90 days Flomax 0.4 MG 1 capsule Orally Once a Mar, Act li day for 30 day(s) Rosuvastatin Calcium 20 MG 1 tablet Orally Once a day Active for 90 days Fluoxetine HCl 20 MG 1 capsule Orally Once a Active day for 90 days Metformin HCl 1000 MG 1 tablet with a meal Active Orally Once a day for 90 days Tresiba FlexTouch 200 Inject 60 units Act li UNIT/ML Subcutaneous QD for 90 days [place] Thyroid 60 MG 1 tablet on an empty Apr, Active stomach Orally Once a day for 30 day(s) Benzonatate 200 MG 1 capsule Orally Three Apr, May, Active times a day PRN Cough for 15 days Co Q-10 400 MG 1 capsule with a meal Acti ve Orally PRN Nature-Throid 65 MG 1 tablet on an empty Active stomach Orally Once a day for 90 days Trulicity 1.5 MG/0.5ML as directed Subcutaneous Aug, Active Once a week for 30 days PROCEDURES No Information RESULTS No Results REASON FOR VISIT armor thyroid MEDICAL (GENERAL) HISTORY Type Description Date Surgical History Knees-injuries [phone] Surgical History Biceps-Tornbiceps,both arms 1999 Surgical History Ankles,Torn peroneal tendons Surgical History Nose-broken 1960 Goals Section No Information Health Concerns No Information MEDICAL EQUIPMENT No Information MENTAL STATUS No Information FUNCTIONAL STATUS No Information ASSESSMENTS No Information PLAN OF TREATMENT Medication Medication Name Sig Start Date Stop Date [place] Thyroid 60 MG 1 tablet on an empty stomach Orally Apr, Once a day for 30 day(s) Benzonatate 200 MG 1 capsule Orally Three times a day PRN AprMay, Cough for 15 days Insurance Providers Payer Name Payer Payer Insured Patient Coverage Coverage End Address Phone Name Relationship to Start Date Raul e Insured [employer] [phone] Tereza Martin self prin [phone] [place] Replace [id number]
--- OUTSIDE RECORDS SUMMARY | 2020-05-18 20:10 | XMS REPORT ---
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 Problem Acquired hypothyroidism E03.9 Acti ve Problem Mixed hyperlipidemia E78.2 Active Assessment GERD without esophagitis K21.9 Act li Assessment Irritability and anger R45.4 Activ e Assessment Mixed hyperlipidemia E78.2 Active Assessment Requires supplemental oxygen Z99.81 Active Assessment Essential hypertension I10 Activ e Assessment Current moderate episode of major F32.1 Active depressive disorder without prior episode Assessment Other viral pneumonia J12.89 Active Assessment Type 2 diabetes mellitus with E11.65 Active hyperglycemia Assessment Lower urinary tract symptoms (LUTS) R39.9 Active Assessment Acquired hypothyroidism E03.9 Acti ve Assessment COVID-19 U07.1 Active Medications Medication Code Code Instructions Start End Status Dosage System Date Date Fluoxetine HCl ND 30586720374 20 MG Orally Active 1 capsule Once a day Meloxicam ND 96817962297 15 MG Orally Active 1 tab let Once a day Invokana [facility] 57323455404 300 mg orally Active 1 tab let once a day Tresiba ND 48919812180 200 UNIT/ML Active Inject 6 0 FlexTouch Subcutaneous QD units Flomax ND 32004888825 0.4 MG Orally Mar 20, Active 1 caps ule Once a day 2019 Rosuvastatin ND 43420218115 20 MG Orally Active 1 tablet Calcium Once a day Co Q-10 [facility] 29104926839 400 MG Orally Active 1 caps ule PRN with a meal Trulicity [facility] 32421171232 1.5 MG/0.5ML Aug 08, Active as di rected Subcutaneous 2020 Once a week Metformin HCl [facility] 78714880116 1000 MG Orally Active 1 tablet Once a day with a meal Benzonatate [facility] 85892211249 200 MG Orally Apr 10, Apr Active 1 capsule Three times a 2019 Gabapentin [facility] 60518642410 100 MG Orally February 17, Active 1 capsule twice a day 2019 Nature-Throid [facility] 85121062134 65 MG Orally Active 1 tablet on Once a day an empty stomach Results No Known Results Summary Purpose eClinicalWorks Submission
--- OUTSIDE RECORDS SUMMARY | 2020-05-18 20:10 | XMS REPORT ---
:1950 Author Organization [facility] Address [address] [place] [address] Care Team Providers Name Role Phone Fournier Unavailable [phone] PROBLEMS Type Condition ICD9-CM [id number] Onset Condition SNOMED Code Notes Code Code Dates Status Problem Current moderate F32.1 Active 83403174 episode of major depressive disorder without prior episode Problem GERD without K21.9 Active 774520072 esophagitis Problem detention Z79.4 Active 899467982 (current) use of insulin Problem Essential I10 Active 16269706 hypertension Problem Requires Z99.81 Active 507438155622 supplemental oxygen Problem Type 2 diabetes E11.65 Active 31385592 mellitus with hyperglycemia Problem Mixed E78.2 Active 442806677 hyperlipidemia Problem Acquired E03.9 Active 536907708 hypothyroidism Problem Generalized F41.1 Active 95407684 anxiety disorder ALLERGIES Allergen (clinical drug Drug/Non Drug Allergy Reaction Allergy Type Onset Date Status ingredient) documented on EMR sulfacetamide Sulfacetamide Rash Drug Allergy Active Sodium([facility] Code:[address]-53) ENCOUNTERS from 1950 to 2020-04-25 Encounter Location Date Provider Diagnosis [facility] [address], [place] Fournier Type [address] [place] [facility] [address] hyperglycemia E11.65 and Acquired hypothyroidism E03.9 IMMUNIZATIONS Vaccine Route Administration Date Status FluAD [...] li UNIT/ML Subcutaneous QD for 90 days Co Q-10 400 MG 1 capsule with a meal Acti ve Orally PRN Benzonatate 200 MG 1 capsule Orally Three Apr, May, Active times a day PRN Cough for 15 days Benzonatate 200 MG 1 capsule Orally Three Apr, Apr, Active times a day for 15 days Nature-Throid 65 MG 1 tablet on an empty Active stomach Orally Once a day for 90 days Trulicity 1.5 MG/0.5ML as directed Subcutaneous Aug, Active Once a week for 30 days [place] Thyroid 60 MG 1 tablet on an empty Apr, Active stomach Orally Once a day for 30 day(s) PROCEDURES No Information RESULTS No Results REASON FOR VISIT resending medication MEDICAL (GENERAL) HISTORY Type Description Date Surgical History Knees-injuries [phone] Surgical History Biceps-Tornbiceps,both arms 1999 Surgical History Ankles,Torn peroneal tendons Surgical History Nose-broken 1960 Goals Section No Information Health Concerns No Information MEDICAL EQUIPMENT No Information MENTAL STATUS No Information FUNCTIONAL STATUS No Information ASSESSMENTS Encounter Date Diagnosis Notes Apr, Type 2 diabetes mellitus with hyperglyce sera (ICD-10 - E11.65) Apr, Acquired hypothyroidism (ICD-10 - E03.9) PLAN OF TREATMENT Medication Medication Name Sig Start Date Stop Date [place] Thyroid 60 MG 1 tablet on an empty stomach Orally Apr, Once a day for 30 day(s) Benzonatate 200 MG 1 capsule Orally Three times a day PRN AprMay, Cough for 15 days Insurance Providers Payer Name Payer Payer Insured Patient Coverage Coverage End Address Phone Name Relationship to Start Date Raul e Insured [employer] [place] [phone] VeronicaH self [facility] [phone] [facility]3][address] Medicare [place] Replace [phone]
[2020-05-18] MEDS ORDERED: ONDANSETRON 4 MG/2 ML VIAL ONE (20:42)
[2020-05-18 20:57] LABS: Absolute Lymphocytes (CBC) 0.5 K/uL (0.7-4.9); Basophils % 0.4 % (0-1.3); Hematocrit 41.6 % (39.6-49.0); Lymphocytes % 4.5 % (15.3-44.8); MPV 8.1 fL (7.6-11.3); RBC Red Blood Cell Count 4.81 M/uL (4.33-5.43)
[2020-05-18 21:00] LABS: Protime INR 1.17
--- NOTE | 2020-05-18 21:16 | RAD REPORT ---
EXAM DESCRIPTION: RAD - Chest Single View - 05/18/2020 9:10 pm CLINICAL HISTORY: CHEST PAIN Chest pain. COMPARISON: Chest Single View dated 02/25/2020; Chest Single View dated 02/20/2020 FINDINGS: Portable technique limits examination quality. The lungs are grossly clear. The heart is normal in size. No displaced fractures. IMPRESSION: No acute intrathoracic process suspected.
[2020-05-18 21:17] LABS: ALT/SGPT 10 U/L (12-78); AST/SGOT 6 U/L (15-37); Albumin 3.3 g/dL (3.4-5.0); Alkaline Phosphatase 77 U/L (45-117); BUN Blood Urea Nitrogen 10 mg/dL (7-18); Bicarbonate 27 mmol/L (21-32); Bilirubin Direct 0.2 mg/dL (0-0.2); Bilirubin Total 1.1 mg/dL (0.2-1.0); Glucose Level 309 mg/dL (74-106); Magnesium 1.9 mg/dL (1.8-2.4); NT PRO-BNP 142 pg/mL (<125); Potassium 3.8 mmol/L (3.5-5.1); Protein, Total 7.7 g/dL (6.4-8.2); Sodium Level 133 mmol/L (136-145); Troponin (Emerg Dept Use Only) < 0.02 ng/mL (0.0-0.045)
[2020-05-18 21:41] LABS: Blood Morphology Comment NOT SEEN (NOT SEEN); Platelet Estimate ADEQ
--- NOTE | 2020-05-18 23:29 | EDPHYS ---
Physician Documentation [facility] Name: Hasmukh Martin Age: 69 yrs Sex: Male : 1950 Arrival Date: 05/18/2020 Time: 20:08 Bed 16 Private MD: Shantanu [facility] ED Physician Juan Carlos Bazan HPI: 05/18 21:42 This 69 yrs old Male presents to ER via Wheelchair with complaints of Fever, tw4 Near Syncope, Dizziness, Chest Pain, Nausea. 21:43 The patient has experienced near-syncope, felt dizzy, felt generally weak. Onset: The tw4 symptoms/episode began/occurred today. Duration: The patient has had multiple episodes. Context: the episode(s) was witnessed, by no one, occurred at home. Associated injury: The patient did not suffer any apparent associated injury. Historical: - Allergies: 20:24 Sulfa (Sulfonamide Antibiotics); jd3 - PMHx: 20:24 Diabetes - NIDDM; jd3 - PSHx: 20:24 None; jd3 - Immunization history:: Adult Immunizations up to date. - Social history:: Smoking status: Patient denies any tobacco usage or history of. Vital Signs: 20:24 BP 129 / 83; Pulse 105; Resp 18 S; Temp 101.2(O); Pulse Ox 97% on R/A; Weight 80.74 kg jd3 (R); Height 5 ft. 11 in. (180.34 cm) (R); Pain 1/10; 21:28 BP 131 / 77; Pulse 107; Resp 18; Pulse Ox 99% on R/A; ll2 21:37 BP 142 / 98; Pulse 106; Resp 18; Temp 98.6; Pulse Ox 99% on R/A; ll2 22:40 BP 113 / 82; Pulse 93; Resp 19; Temp 99.6(O); Pulse Ox 97% on R/A; lp1 23:45 BP 131 / 81; Pulse 95; Resp 21; Pulse Ox 95% on R/A; lp1 20:24 Body Mass Index 24.83 (80.74 kg, 180.34 cm) jd3 MDM: 20:38 Patient medically screened. tw4 05/18 20:14 Order name: Basic Metabolic Panel; Complete Time: 22:03 tw4 05/18 20:14 Order name: CBC with Diff; Complete Time: 22:03 tw4 05/18 20:14 Order name: LFT's; Complete Time: 22:03 tw4 05/18 20:14 Order name: Magnesium; Complete Time: 22:03 tw4 05/18 20:14 Order name: NT PRO-BNP; Complete Time: 22:03 tw4 05/18 20:14 Order name: PT-INR; Complete Time: 21:09 tw4 05/18 20:14 Order name: Troponin (emerg Dept Use Only); Complete Time: 22:03 tw4 05/18 20:21 Order name: Flu; Complete Time: 22:03 tw4 05/18 20:21 Order name: Strep; Complete Time: 22:03 tw4 05/18 21:04 Order name: Manual Differential; Complete Time: 22:03 EDMS 05/18 21:22 Order name: Throat Culture EDMS 05/19 00:09 Order name: SARS-COV-2 RT PCR; Complete Time: 00:37 EDMS 05/19 01:57 Order name: Lactate EDMS 05/18 20:14 Order name: XRAY Chest (1 view); Complete Time: 22:03 tw4 05/18 20:14 Order name: EKG; Complete Time: 20:15 tw4 05/18 20:14 Order name: Cardiac monitoring; Complete Time: 20:58 tw4 05/18 20:14 Order name: EKG - Nurse/Tech; Complete Time: 20:58 tw4 05/18 20:14 Order name: IV Saline Lock; Complete Time: 20:58 tw4 05/18 20:14 Order name: Labs collected and sent; Complete Time: 20:58 tw4 05/18 20:14 Order name: O2 Per Protocol; Complete Time: 21:01 tw4 05/18 22:36 Order name: CT Chest For PE Angio tw4 05/19 03:12 Order name: Procalcitonin EDMS 05/19 05:17 Order name: CBC with Automated Diff EDMS 05/19 05:43 Order name: Basic Metabolic Panel EDMS 05/19 05:43 Order name: Troponin I EDMS 05/19 05:43 Order name: C-Reactive Protein EDMS 05/19 05:43 Order name: Magnesium EDMS 05/19 08:12 Order name: Glucose, Ancillary Testing EDDC 05/18 20:14 Order name: O2 Sat Monitoring; Complete Time: 21:01 tw4 05/18 20:21 Order name: Tori CUELLO#; Complete Time: 20:58 tw4 05/18 20:21 Order name: Droplet/Contact Precautions; Complete Time: 20:58 tw4 05/18 20:21 Order name: Elaina [facility] Dept [phone]/ ; Complete Time: 21:01 tw4 Administered Medications: 21:01 Drug: Zofran (Ondansetron) 4 mg Route: IVP; Site: left antecubital; ll2 21:25 Follow up: Response: No adverse reaction ll2 Disposition: 05/18/20 23:29 Hospitalization ordered by Sean Hodges for Observation. Preliminary diagnosis is Other chest pain. - Bed requested for Intensive Care Unit. - Status is Observation. tw2 - Condition is Stable. - Problem is new. - Symptoms have improved. Signatures: Dispatcher [employer] EDDC Yvan Pedroza, MABEL-C APPLIED MARINE PHYSICS PROFESSOR-Cla1 Coral Evans, RN RN cg Yelena Grider, RN RN tw2 Watson Shrestha, RN RN jd3 Munir Aldrich RN RN ja1 Juan Carlos Bazan MD MD tw4 Abby Dorado, RN RN ll2 Corrections: (The following items were deleted from the chart) 22:48 20:21 CORONAVIRUS+MR.LAB.BRZ ordered. [facility] EDDC 05/19 00:49 05/18 23:29 Hospitalization Ordered by Sean Hodges MD for Observation. Preliminary cg diagnosis is Other chest pain. Bed requested for Telemetry/MedSurg (observation). Status is Observation. Condition is Stable. Problem is new. Symptoms have improved. tw4 05/19 06:28 00:49 05/18/2020 23:29 Hospitalization Ordered by Sean Hodges MD for Observation. cg Preliminary diagnosis is Other chest pain. Bed requested for [facility] ER HOLD. Status is Observation. Condition is Stable. Problem is new. Symptoms have improved. cg 07:38 06:28 05/18/2020 23:29 Hospitalization Ordered by Sean Hodges MD for Observation. ja1 Preliminary diagnosis is Other chest pain. Bed requested for Intensive Care Unit. Status is Observation. Condition is Stable. Problem is new. Symptoms have improved. 08:46 07:38 05/18/2020 23:29 Hospitalization Ordered by Sean Hodges MD for Observation. tw2 Preliminary diagnosis is Other chest pain. Bed requested for Intensive Care Unit. Status is Observation. Condition is Stable. Problem is new. Symptoms have improved. ja1
--- NOTE | 2020-05-18 23:29 | ER ---
Nurse's Notes [facility] Name: Hasmukh Martin Age: 69 yrs Sex: Male : 1950 Arrival Date: 05/18/2020 Time: 20:08 Bed 16 Private MD: Marshall Fournier Diagnosis: Other chest pain Presentation: 05/18 20:21 Chief complaint: Patient states: "for about 3 days now I have been having a fever, but jd3 today i am feeling worse. today I am feeling like I am going to pass out and very nauseous with a slight pain in my chest. I was diagnosed with COVID at the end of October into November, so I don't think it is that.". Coronavirus screen: fatigue, fever, Client presents with at least one sign or symptom that may indicate coronavirus-19. Standard/surgical mask placed on the client. Provider contacted for isolation considerations. Ebola Screen: Patient negative for fever greater than or equal to 101.5 degrees Fahrenheit, and additional compatible Ebola Virus Disease symptoms. Initial Sepsis Screen: Does the patient meet any 2 criteria? No. Patient's initial sepsis screen is negative. Does the patient have a suspected source of infection? No. Patient's initial sepsis screen is negative. Risk Assessment: Do you want to hurt yourself or someone else? Patient reports no desire to harm self or others. Onset of symptoms was May 15, 2020. 20:21 Method Of Arrival: Wheelchair jd3 20:21 Acuity: MARTA 3 jd3 Historical: - Allergies: 20:24 Sulfa (Sulfonamide Antibiotics); jd3 - PMHx: 20:24 Diabetes - NIDDM; jd3 - PSHx: 20:24 None; jd3 - Immunization history:: Adult Immunizations up to date. - Social history:: Smoking status: Patient denies any tobacco usage or history of. Screenin:27 Abuse screen: Denies threats or abuse. Nutritional screening: No deficits noted. ll2 Tuberculosis screening: No symptoms or risk factors identified. 22:14 Fall Risk None identified. IV access (20 points). Ambulatory Aid- None/Bed Rest/Nurse ll2 Assist (0 pts). Gait- Normal/Bed Rest/Wheelchair (0 pts) Mental Status- Oriented to own ability (0 pts). Total Mcrae Fall Scale indicates No Risk (0-24 pts). Assessment: 20:26 Reassessment: ERD to bedside. ll2 20:47 General: Appears in no apparent distress. Behavior is calm, cooperative, appropriate ll2 for age. Pain: Complains of pain in epigastric area. Neuro: Level of Consciousness is awake, alert, obeys commands, Oriented to person, place, time. Cardiovascular: Capillary refill < 3 seconds Patient's skin is warm and dry. Respiratory: Airway is patent Respiratory effort is even, unlabored. GI: No signs and/or symptoms were reported involving the gastrointestinal system. : No signs and/or symptoms were reported regarding the genitourinary system. EENT: No signs and/or symptoms were reported regarding the EENT system. Derm: Skin is intact, is healthy with good turgor, Skin is dry, Skin is pink, warm \\T\\ dry. Skin temperature is warm. Musculoskeletal: Circulation, motion, and sensation intact. Range of motion: intact in all extremities. 21:02 Pain: Pain does not radiate. Pain began suddenly. ll2 21:03 Reassessment: No changes from previously documented assessment. Patient and/or family ll2 updated on plan of care and expected duration. Pain level reassessed. Patient is alert, oriented x 3, equal unlabored respirations, skin warm/dry/pink. 21:32 Reassessment: Patient and/or family updated on plan of care and expected duration. Pain ll2 level reassessed. Patient is alert, oriented x 3, equal unlabored respirations, skin warm/dry/pink. Patient denies pain at this time. 22:12 Reassessment: print line operator shows frequent PVC's, ERD notified, EKG obtained. ll2 22:41 Reassessment: Patient appears in no apparent distress at this time. Patient is alert, lp1 oriented x 3, equal unlabored respirations, skin warm/dry/pink. Patient denies any nausea. 23:56 Reassessment: Patient appears in no apparent distress at this time. Patient returned lp1 from CT. 05/19 00:00 Reassessment: RENU Cleaning at bedside to discuss plan of care with patient. lp1 00:19 Reassessment: Patient notified by RENU Cleaning of COVID POSITIVE results. lp1 Vital Signs: 05/18 20:24 BP 129 / 83; Pulse 105; Resp 18 S; Temp 101.2(O); Pulse Ox 97% on R/A; Weight 80.74 kg jd3 (R); Height 5 ft. 11 in. (180.34 cm) (R); Pain 08/10; 21:28 BP 131 / 77; Pulse 107; Resp 18; Pulse Ox 99% on R/A; ll2 21:37 BP 142 / 98; Pulse 106; Resp 18; Temp 98.6; Pulse Ox 99% on R/A; ll2 22:40 BP 113 / 82; Pulse 93; Resp 19; Temp 99.6(O); Pulse Ox 97% on R/A; lp1 23:45 BP 131 / 81; Pulse 95; Resp 21; Pulse Ox 95% on R/A; lp1 20:24 Body Mass Index 24.83 (80.74 kg, 180.34 cm) jd3 ED Course: 20:08 Patient arrived in ED. as 20:08 Marshall Fournier DO is Private Physician. as 20:13 Juan Carlos Bazan MD is Attending Physician. tw4 20:24 Triage completed. jd3 20:25 Arm band placed on. jd3 20:25 EKG completed in triage. Results shown to MD. jd3 20:26 Abby Dorado, RN is Primary Nurse. ll2 20:57 Inserted saline lock: 20 gauge in right forearm, using aseptic technique. Blood dh4 collected. 20:58 Flu Sent. dh4 20:58 Strep Sent. dh4 21:10 XRAY Chest (1 view) In Process Unspecified. EDMS 22:14 Patient has correct armband on for positive identification. Bed in low position. Call ll2 light in reach. Side rails up X 1. sap manager on. Pulse ox on. NIBP on. 22:14 No provider procedures requiring assistance completed. Patient maintains SpO2 ll2 saturation greater than 95% on room air. 22:15 Report received from ROZ Tran. lp1 23:29 Sean Hodges MD is Hospitalizing Provider. tw4 23:59 CT Chest For PE Angio In Process Unspecified. EDMS 05/19 00:48 Patient admitted, IV remains in place. lp1 07:45 Primary Nurse role handed off by Abby Dorado, ROZ bd Administered Medications: 05/18 21:01 Drug: Zofran (Ondansetron) 4 mg Route: IVP; Site: left antecubital; ll2 21:25 Follow up: Response: No adverse reaction 2 Outcome: 23:29 Decision to Hospitalize by Provider. 4 05/19 00:48 Condition: stable lp1 Instructed on the need for admit. 00:49 Admitted to ER Hold. Please see [facility] for further documentation. lp1 08:46 Patient left the ED. 2 Signatures: Dispatcher [employer] EDMS Rosaura Huerta Amelia as Pena, Laura, ROZ RN lp1 Yelena Grider RN RN 2 Watson Shrestha RN RN Juan Carlos Lemus MD MD 4 Luis Juares [facility] Abby Dorado, RN RN 2 Corrections: (The following items were deleted from the chart) 05/18 22:48 20:58 CORONAVIRUS+MR.LAB.ADONAYZ drawn and sent. [address]
--- NOTE | 2020-05-19 00:42 | P.HP ---
Certification for Inpatient Patient admitted to: Observation With expected LOS: <2 Midnights Patient will require the following post-hospital care: None Practitioner: I am a practitioner with admitting privileges, knowledge of patient current condition, hospital course, and medical plan of care. Services: Services provided to patient in accordance with Admission requirements found in Title 42 Section 412.3 of the Code of Federal Regulations <SaranyamacielYvan - Last Filed: 05/19/20 00:29> Patient History Date of Service: 05/19/20 Primary Care Provider: Dr. Fournier Reason for admission: COVID-19 History of Present Illness: 69 YOM with hx of DMII and prior COVID-19 infection a few months back presents to the ED with fever, chills, cough, pleuritic chest pain. Pt was evaluated in the ED and found to test positive for COVID-19 again. Pt is febrile and having persistent non-productive cough. Labs only remarkable for NA-133, BGL 309, WBC 11.9, 5% bands, BNP-142. Patient had CT PE protocol in the ED which showed right apical medial airspace consolidation concerning for pneumonia but due to rounded appearance follow up CT recommended in 6-12 weeks. Also noted ANSON ground glass opacities that have improved from previous imaging. ED provider wishes to admit pt for further evaluation and management. When I saw the pt in the ED he was awake, alert, oriented x3. No respiratory distress, sats >95% on room air. pt prefers obs admit over discharge due to having two disabled children at home. Pt does not appear septic at this time. - Past Medical/Surgical History Diabetic: Yes -: Diabetes mellitus type 2- IDDM -: Hypertension -: Hyperlipidemia -: Hypothyroid -: Bicep tendon repair -: anson ankle sx -: Anson Knee sx Psychosocial/ Personal History: Patient lives at home with his and to disable daughters - Social History Smoking Status: Never smoker Alcohol use: No CD- Drugs: No Caffeine use: No Place of Residence: Home <Yvan Pedroza - Last Filed: 05/19/20 00:29> Date of Service: 05/19/20 <Sean Hodges - Last Filed: 05/20/20 09:28> Allergies Sulfa (Sulfonamide Antibiotics) Allergy (Verified 05/19/20 02:13) Anaphylaxis Home Medications: Canagliflozin [Invokana] 300 mg PO DAILY 02/20/20 Dulaglutide [Trulicity] 1.5 mg SQ SEECOM 02/20/20 Fluoxetine HCl [Prozac] 20 mg PO DAILY 02/20/20 Meloxicam 1 tab PO DAILY 02/20/20 Rosuvastatin Calcium 20 mg PO DAILY 02/20/20 Ubidecarenone [Co Q-10] 400 mg PO DAILY 02/20/20 Fluticasone/Salmeterol [Advair 250-50 Diskus] 1 each IH BID 05/19/20 Insulin Degludec [Tresiba] 60 unit SQ DAILY 05/19/20 Metformin ER [Glucophage ER] 500 mg PO DAILY 05/19/20 Tamsulosin [Flomax] 0.4 mg PO BEDTIME 05/19/20 Thyroid,Pork [Nature-Throid] 65 mg PO DAILY 05/19/20 Review of Systems General: Fever, Chills, Weakness, Malaise Respiratory: Cough, Shortness of Breath, Pleuritic Pain Gastrointestinal: Nausea, Vomiting <Yvan Pedroza - Last Filed: 05/19/20 00:29> Physical Examination - Physical Exam General: Alert, In no apparent distress HEENT: Atraumatic, PERRLA, Mucous membr. moist/pink Neck: Supple, 2+ carotid pulse no bruit, No LAD Respiratory: Clear to auscultation bilaterally, Normal air movement Cardiovascular: Regular rate/rhythm, Normal S1 S2 Gastrointestinal: Normal bowel sounds, No tenderness Musculoskeletal: No tenderness Integumentary: No rashes Neurological: Normal speech, Normal strength at 5/5 x4 extr, Normal tone, Normal affect - Studies Laboratory Data (last 24 hrs) 05/18/20 20:45: PT 13.8 H, INR 1.17 05/18/20 20:45: WBC 11.9 H, Hgb 14.1, Hct 41.6, Plt Count 238 05/18/20 20:45: Sodium 133 L, Potassium 3.8, BUN 10, Creatinine 0.79, Glucose 309 H, Magnesium 1.9, Total Bilirubin 1.1 H, AST 6 L, ALT 10 L, Alkaline Phosphatase 77 Microbiology Data (last 24 hrs): 05/18/20 20:45 Nasopharnyx Influenza Type A Antigen Screen - Final 05/18/20 20:45 Nasopharnyx Influenza Type B Antigen Screen - Final 05/18/20 20:45 Throat Group A Streptococcus Rapid Screen - Final <Yvan Pedroza - Last Filed: 05/19/20 00:29> Assessment and Plan - Plan Assessment COVID-19 Viral Illness with suspected secondary bacterial pneumonia right upper lobe DMII- insulin dependent HTN HLD Hypothyroidism Plan COVID-19 Viral Illness with suspected secondary bacterial pneumonia right upper lobe: Blood cultures obtained, pt not hypoxic, will hold off on steroids at this time. Rocephin/zithromax due to bandemia and CT showing concern for RUL pneumonia. Continue with tessalon pearles PRN, incentive spirometery, daily RA sats. DVT prophylaxis lovenox 40mg subq Daily. Likely DC tomorrow. DMII- insulin dependent: ACHS accucheck, Sliding scale insulin, ADA diet. Pt with recent a1c HTN: Continue home meds HLD:Continue home meds Hypothyroidism:Continue home meds Discharge Plan: Home Plan to discharge in: 24 Hours - Advance Directives Does patient have a Living Will: No Does patient have a Durable POA for Healthcare: No - Code Status/Comfort Care Code Status Assessed: Yes (Full code) Critical Care: No Time Spent Managing Pts Care (In Minutes): 55 <Yvan Pedroza - Last Filed: 05/19/20 00:29> Date of Service: 05/19/20 Chart reviewed; agree with the above findings. Patient will be admitted to the COVID floor for observation. <Sean Hodges - Last Filed: 05/20/20 09:28>
[2020-05-19] MEDS ORDERED: ALBUTEROL INHALER 60 PUFF/8 GM IH PRN (00:50)
[2020-05-19] MEDS ORDERED: ONDANSETRON 4 MG/2 ML VIAL IV PRN (00:50)
[2020-05-19] MEDS ORDERED: HYDROCODONE/APAP 5/325 MG TAB PO PRN (00:50)
[2020-05-19] MEDS ORDERED: NA CHLORIDE 0.9% 250 ML ONE (01:11)
[2020-05-19] MEDS ORDERED: AZITHROMYCIN 500 MG INJ IVPB ONE (01:11)
[2020-05-19] MEDS ORDERED: CEFTRIAXONE/SWI 1gm 1 GM/10 ML SYR ONE (01:11)
[2020-05-19] MEDS: CEFTRIAXONE/SWI 1gm 1 GM/10 ML SYR IVP SCH ×2 (01:51→13:01)
[2020-05-19] MEDS: AZITHROMYCIN IV 500 MG in NA CHLORIDE 0.9% 250 ML IVPB SCH ×2 (01:51→20:34)
[2020-05-19] MEDS: BENZONATATE 100 MG CAP PO PRN ×2 (01:54→09:23)
[2020-05-19] MEDS: ACETAMINOPHEN 500 MG TAB PO PRN ×4 (01:54→23:40)
[2020-05-19 02:06] VITALS: BMI 24.8
[2020-05-19] MEDS ORDERED: ACETAMINOPHEN 500 MG TAB ONE (02:07)
[2020-05-19] MEDS ORDERED: BENZONATATE 100 MG CAP PO ONE (02:07)
[2020-05-19 05:11] LABS: Absolute Lymphocytes (CBC) 0.5 K/uL (0.7-4.9); Basophils % 0.2 % (0-1.3); Lymphocytes % 4.9 % (15.3-44.8); MPV 7.8 fL (7.6-11.3); RBC Red Blood Cell Count 4.76 M/uL (4.33-5.43)
[2020-05-19 05:43] LABS: BUN Blood Urea Nitrogen 10 mg/dL (7-18); Bicarbonate 26 mmol/L (21-32); Glucose Level 349 mg/dL (74-106); Potassium 4.2 mmol/L (3.5-5.1); Sodium Level 131 mmol/L (136-145); Troponin I < 0.02 ng/mL (0.0-0.045)
[2020-05-19] MEDS: INSULIN -REGULAR HUMAN 50 UNIT/0.5 ML ML SQ SCH ×4 (08:10→20:35)
[2020-05-19] MEDS ORDERED: INSULIN -REGULAR HUMAN 50 UNIT/0.5 ML ML ONE (08:21)
[2020-05-19] MEDS ORDERED: CEFTRIAXONE 1 GM/NS 50 ML 1 GM/50 ML BAG IV SCH (09:00)
[2020-05-19] MEDS: THIAMINE 200 MG/2 ML INJ IVP SCH (09:20)
[2020-05-19] MEDS: ASCORBIC ACID 500 MG TABLET PO SCH ×3 (09:20→20:34)
[2020-05-19] MEDS: FOLIC ACID 1 MG TABLET PO SCH (09:21)
[2020-05-19] MEDS: ENOXAPARIN 40 MG/0.4 ML SQ SCH (09:22)
[2020-05-19] MEDS: VITAMIN D 1000 UNIT TAB PO SCH (09:22)
[2020-05-19] MEDS ORDERED: DIPHENOX/ATROP SULF 1 TAB PO ONE ×2 (12:07→13:03)
[2020-05-19] MEDS ORDERED: INFLUENZA VACCINE (for 3y+) 0.5 ML DOSE IMVAC ONE (13:00)
[2020-05-19] MEDS ORDERED: NA CHLORIDE 0.9% 1,000 ML IV SCH (14:00)
--- NOTE | 2020-05-19 14:22 | RAD REPORT ---
EXAM DESCRIPTION: CT - Chest For Pe Angio - 05/19/2020 6:53 am CLINICAL HISTORY: Near sycnope COMPARISON: 02/20/2020 TECHNIQUE: CTA of the chest obtained following the uncomplicated intravenous administration of iodin ated contrast.. 3-D/MIP reformatted images of the chest available for evaluation. FINDINGS: Chest: Pulmonary arteries: Contrast bolus is adequate.No filling defects identified in the pulmonary arterie s to suggest pulmonary embolus. Suboptimal evaluation of the lower lobar segmental and subsegmental p ulmonary arterial branches due to respiratory motion artifact. Thyroid: No abnormalities of the visualized thyroid. Great Vessels: Great vessels have normal anatomic configuration. Thoracic Aorta: Atherosclerotic calcification of the thoracic aorta. Heart: Coronary artery atherosclerosis. No cardiomegaly or significant pericardial effusion. Lymph Nodes: No enlarged mediastinal lymph nodes identified. Mediastinal calcifications. Esophagus: No abnormalities of the esophagus identified. Other: No additional findings. Lungs: Interval development of confluent airspace consolidation in the right upper lobe. Interval imp roved aeration of the lungs otherwise bilaterally with minimal persistent peripheral groundglass opac ities are significantly decreased from the comparison study. Pleura: No pleural effusion or pneumothorax. Trachea/Airways: No abnormalities of the visualized trachea or airways. Bones: Minimal degenerative endplate spondylosis of the spine. Upper Abdomen: Limited images of the upper abdomen demonstrate no definite abnormalities of visualize d portions of the liver, gallbladder, pancreas, spleen, adrenal glands, or kidneys. IMPRESSION: 1. No central pulmonary embolus identified. Suboptimal evaluation of the basilar segment al and subsegmental pulmonary branches due to respiratory motion artifact. 2. Interval development of right apical medial airspace consolidation concerning for pneumonia. Given somewhat rounded configuration follow-up CT in 6-12 weeks to confirm resolution recommended. 3. Peripheral bilateral groundglass opacities which are significantly decreased from the comparison s tudy may represent resolving atypical pneumonic process. 4. Coronary artery atherosclerosis. This exam was performed according to our departmental dose-optimization program, which includes autom ated exposure control, adjustment of the mA and/or kV according to patient size and/or use of iterati ve reconstruction technique. Electronically signed by: Carlos Alberto Orozco 05/19/2020 12:21 AM CDT Due to temporary technical issues with the PACS/Fluency reporting system, reports are being signed by the in house radiologist without review as a courtesy to ensure prompt reporting. The interpreting r adiologist is fully responsible for the content of the report.
[2020-05-19] MEDS ORDERED: DULERA 100/5 (MOMETASONE/FORMOTEROL) INHALER IH SCH (20:00)
[2020-05-19] MEDS: DULERA 100/5 (MOMETASONE/FORMOTEROL) INHALER IH SCH (20:00)
[2020-05-19] MEDS ORDERED: TAMSULOSIN 0.4 MG SR CAP PO SCH (21:00)
[2020-05-20] MEDS: CEFTRIAXONE/SWI 1gm 1 GM/10 ML SYR IVP SCH ×2 (02:10→14:23)
[2020-05-20 05:15] VITALS: O2SAT 96
[2020-05-20] MEDS ORDERED: THYROID 30 MG TAB PO SCH (06:30)
[2020-05-20] MEDS: INSULIN -REGULAR HUMAN 50 UNIT/0.5 ML ML SQ SCH ×2 (07:56→11:59)
[2020-05-20] MEDS: DULERA 100/5 (MOMETASONE/FORMOTEROL) INHALER IH SCH (07:56)
[2020-05-20] MEDS: VITAMIN D 1000 UNIT TAB PO SCH (07:57)
[2020-05-20] MEDS: ENOXAPARIN 40 MG/0.4 ML SQ SCH (07:57)
[2020-05-20] MEDS: ASCORBIC ACID 500 MG TABLET PO SCH ×2 (07:57→14:22)
[2020-05-20] MEDS: THIAMINE 200 MG/2 ML INJ IVP SCH (07:58)
[2020-05-20] MEDS: FOLIC ACID 1 MG TABLET PO SCH (07:58)
[2020-05-20] MEDS ORDERED: METFORMIN ER 500 MG TAB PO SCH (08:00)
[2020-05-20] MEDS ORDERED: INSULIN DEGLUDEC 60 UNIT SQ SCH (09:00)
[2020-05-20] MEDS ORDERED: FLUOXETINE 20 MG CAP PO SCH (09:00)
[2020-05-20] MEDS ORDERED: ROSUVASTATIN 10 MG TAB PO SCH (09:00)
[2020-05-20] MEDS ORDERED: MELOXICAM 7.5 MG TAB PO SCH (09:00)
[2020-05-20] MEDS ORDERED: COENZYME Q10- 200 MG CAP PO SCH (09:00)
--- NOTE | 2020-05-20 09:34 | P.PN ---
Subjective Date of Service: 05/20/20 Patient still slightly short of breath. Patient does have some pain on deep inspiration. Patient also having fevers. Overnight temp of a 101 and this morning when under 0.9. Repeat chest x-ray and CRP level. If levels are okay and chest x-ray does not show any worsening and patient is afebrile then ant icipate discharge Review of Systems 10-point ROS is otherwise unremarkable Physical Examination - Vital Signs Temperature: 98 F Blood Pressure: 154/80 Pulse: 90 Respirations: 24 Pulse Ox (%): 93 - Physical Exam General: Alert, In no apparent distress, Oriented x3 Respiratory: Diminished Cardiovascular: Regular rate/rhythm, Normal S1 S2, No murmurs Gastrointestinal: Normal bowel sounds, Soft and benign, Non-distended, No tenderness Neurological: Normal strength at 5/5 x4 extr, Normal tone, Cranial nerves 3-12 intact - Studies Medications List Reviewed: Yes Assessment & Plan - Problems (Diagnosis) (1) Pneumonia due to COVID-19 virus Current Visit: Yes Status: Acute - Plan Plan: 1. Gentle hydration 2. Monitor labs 3. Repeat chest x-ray 4. Monitor O2 saturations 5. Monitor hemodynamics 6. GI and DVT prophylaxis Discharge Plan: Home Plan to discharge in: Greater than 2 days - Advance Directives Does patient have a Living Will: No Does patient have a Durable POA for Healthcare: No - Code Status/Comfort Care Code Status Assessed: Yes Code Status: Full Code Critical Care: No Time Spent Managing PTS Care (In Minutes): 35
[2020-05-20 10:02] LABS: Absolute Lymphocytes (CBC) 0.8 K/uL (0.7-4.9); Basophils % 0.4 % (0-1.3); Hematocrit 37.3 % (39.6-49.0); Lymphocytes % 8.9 % (15.3-44.8); RBC Red Blood Cell Count 4.34 M/uL (4.33-5.43)
[2020-05-20 10:16] LABS: BUN Blood Urea Nitrogen 10 mg/dL (7-18); Bicarbonate 25 mmol/L (21-32); Glucose Level 284 mg/dL (74-106); Potassium 3.3 mmol/L (3.5-5.1); Sodium Level 131 mmol/L (136-145)
--- NOTE | 2020-05-20 13:50 | RAD REPORT ---
[facility]11 [facility] CLINICAL HISTORY: Chest pain COMPARISON: May 18, 2020 FINDINGS: No change in the mild opacity medial right upper lobe Left lung appears clear. Heart is normal size IMPRESSION: No change in a mild right upper lobe pneumonia
[2020-05-20 14:22] LABS: C.diff Antigen/Toxin Ag neg : Tox neg (NEG : NEG)
--- NOTE | 2020-05-20 16:12 | EKG ---
Test Date: 2020-05-18 Test Time: 22:21:41 Head Of Marketing: JOE MEASUREMENT RESULTS: Intervals: Rate: 99 MD: 154 QRSD: 110 QT: 366 QTc: 469 [place]: P: 40 MD: 154 QRS: -11 T: 14 INTERPRETIVE STATEMENTS: Sinus rhythm with premature atrial complexes with aberrant conduction Incomplete right bundle branch block Borderline ECG Compared to ECG 05/18/2020 20:55:39 Atrial premature complex(es) now present Aberrant conduction of supraventricular beat(s) now present Incomplete right bundle-branch block now present Right bundle-branch block no longer present Electronically Signed On 05-20-20 16:08:29 CDT by Dean Clay
[2020-05-20 17:00] VITALS: BP 124/69; TEMP 97.8
--- NOTE | 2020-05-27 16:58 | P.DS ---
Discharge Date: 05/20/20 Primary Care Provider: Dr. Fournier Disposition: ROUTINE DISCHARGE Discharge Condition: GOOD Reason for Admission: COVID-19 - Problems (1) Pneumonia due to COVID-19 virus Status: Acute Brief History of Present Illness: Patient is a 69-year-old gentleman who came into the hospital with COVID-19 Pneumonia. Patient was admitted to be reevaluated for the pneumonia as she was hypoxic. His inflammatory markers were also elevated. Patient will need admission for further evaluation. Hospital Course: Patient's symptoms were stable. He is clinically doing well. He is anxious to go home. He denies any shortness of breath. At the time, he is stable for discharge with outpatient followup. I advised him to return to the Emergency room if his symptoms worsen. He can call me if he has any question regarding his discharge planning. At this time patient is stable for discharge home. Vital Signs/Physical Exam: Temp Pulse Resp BP Pulse Ox 97.8 F 89 18 124/69 92 05/20/20 12:00 05/20/20 12:00 05/20/20 12:00 05/20/20 12:00 05/20/20 12:00 General: Alert, In no apparent distress, Oriented x3 Laboratory Data at Discharge: WBC 8.4 K/uL (4.3-10.9) D 05/20/20 09:43 Hgb 13.0 g/dL (13.6-17.9) L 05/20/20 09:43 Hct 37.3 % (39.6-49.0) L 05/20/20 09:43 Plt Count 227 K/uL (152-406) 05/20/20 09:43 PT 13.8 SECONDS (9.5-12.5) H 05/18/20 20:45 INR 1.17 05/18/20 20:45 Sodium 131 mmol/L (136-145) L 05/20/20 09:43 Potassium 3.3 mmol/L (3.5-5.1) L 05/20/20 09:43 BUN 10 mg/dL (7-18) 05/20/20 09:43 Creatinine 0.76 mg/dL (0.55-1.3) 05/20/20 09:43 Glucose 284 mg/dL (74-106) H 05/20/20 09:43 Magnesium 2.0 mg/dL (1.8-2.4) 05/19/20 05:00 Total Bilirubin 1.1 mg/dL (0.2-1.0) H 05/18/20 20:45 AST 6 U/L (15-37) L 05/18/20 20:45 ALT 10 U/L (12-78) L 05/18/20 20:45 Alkaline Phosphatase 77 U/L (45-117) 05/18/20 20:45 Troponin I < 0.02 ng/mL (0.0-0.045) 05/19/20 05:00 Home Medications: Canagliflozin [Invokana] 300 mg PO DAILY 02/20/20 Dulaglutide [Trulicity] 1.5 mg SQ SEECOM 02/20/20 Fluoxetine HCl [Prozac] 20 mg PO DAILY 02/20/20 Meloxicam 1 tab PO DAILY 02/20/20 Rosuvastatin Calcium 20 mg PO DAILY 02/20/20 Ubidecarenone [Co Q-10] 400 mg PO DAILY 02/20/20 Fluticasone/Salmeterol [Advair 250-50 Diskus] 1 each IH BID 05/19/20 Insulin Degludec [Tresiba] 60 unit SQ DAILY 05/19/20 Metformin ER [Glucophage ER*] 500 mg PO DAILY 05/19/20 Tamsulosin [Flomax*] 0.4 mg PO BEDTIME 05/19/20 Thyroid,Pork [Nature-Throid] 65 mg PO DAILY 05/19/20 Albuterol Inhaler [Ventolin Inhaler*] 2 puff IH Q6H PRN #1 hfa.aer.ad 05/20/20 Ascorbic Acid [Vitamin C*] 500 mg PO TID #90 tablet 05/20/20 Azithromycin Tab [Zithromax*] 250 mg PO DAILY #5 tab 05/20/20 Benzonatate [Tessalon Perle*] 100 mg PO TID PRN #90 cap 05/20/20 Hydrocodone 5/APAP 325 [[place] 5/325*] 1 tab PO Q4H PRN #30 tab 05/20/20 New Medications: Hydrocodone 5/APAP 325 [[place] 5/325*] 1 tab PO Q4H PRN #30 tab PRN Reason: Pain Scale 5-7 (Moderate) Benzonatate [Tessalon Perle*] 100 mg PO TID PRN #90 cap PRN Reason: Cough Albuterol Inhaler [Ventolin Inhaler*] 2 puff IH Q6H PRN #1 hfa.aer.ad PRN Reason: Shortness Of Breath Ascorbic Acid [Vitamin C*] 500 mg PO TID #90 tablet Azithromycin Tab [Zithromax*] 250 mg PO DAILY #5 tab Patient Discharge Instructions: OK TO DC IV AND DC HOME. FOLLOW-UP WITH PRIMARY CARE PROVIDER IN 1-2 WEEKS. FOLLOW-UP WITH Pulmonary IN 1-2 WEEKS. RETURN TO THE ER IF symptoms worsen. CALL or TEXT DR. CONROY AT [phone] IF ANY QUESTIONS REGARDING HOSPITAL STAY. PLEASE CALL THE FLOOR AT [phone] IF ANY MEDICATION OR NURSING QUESTIONS. Diet: Regular Activity: Fall precautions Followup: Marshall Fournier, [Primary Care Provider] - Time spent managing pt's care (in minutes): 35
== END 2020-05-20 15:02 | disposition home or self-care (01) ==
LOC: ER 20:07 → ERHOLD 05-19 00:20 → 3RD-ICU 05-19 08:27
PROVIDERS: ADMIT Hospitalist; ATTEND Hospitalist
DX: U07.1 COVID-19 (principal); J12.89 Other viral pneumonia; R09.02 Hypoxemia; E11.9 Type 2 diabetes mellitus without complications; Z79.4 Long term (current) use of insulin; I10 Essential (primary) hypertension; E78.5 Hyperlipidemia, unspecified; E03.9 Hypothyroidism, unspecified; I45.19 Other right bundle-branch block; I49.1 Atrial premature depolarization
CPT/HCPCS: 93005 ×2; 87040 ×2; 87070; 85025 ×3; 80048 ×3; 36415 ×2; 83735 ×2; 85610; 82947 ×6; 80076; 87081; 83605; 87324; 84484 ×2; 84145; 83880; 87449; 86140 ×2; 87804 ×2; 71275; 71045 ×2; 94010; 96374; 99285; U0003; Q9967; J3411 ×2; J0456 ×2; J1650 ×2; J0696 ×4; J7050 ×2; J7030; J2405; G0378 ×3; J7606